=== PATIENT | male | born 1960 | race Caucasian/White ===

== ENCOUNTER 2020-02-01 10:32 | Outpatient (REF) | payer OTHER, SELFPAY ==
[2020-02-01 11:25] LABS: Alanine Aminotransferase 39 U/L (0-40); Albumin Level 4.4 g/dL (3.5-5.0); Alkaline Phosphatase 80 U/L (39-117); Anion Gap 14 (12-20); Aspartate Amino Transferase 22 U/L (5-37); Bilirubin Total 0.7 mg/dL (0.0-1.0); Blood Urea Nitrogen 15 mg/dL (9-16); Calcium 10.1 mg/dL (8.4-10.2); Carbon Dioxide 34 mmol/L (22-29); Chloride 97 mmol/L (96-108); Estimated Glomerular Filt Rate > 60; Glucose Random 193 mg/dL (60-115); Potassium 4.5 mmol/l (3.3-5.1); Sodium 140 mmol/L (135-145); Total Protein 7.3 g/dL (6.5-8.0)
== END 2020-02-01 10:33 | disposition home or self-care (01) ==
LOC: HO.LAB 10:32
PROVIDERS: PCP Family Medicine; Visit Provider Family Medicine
DX: I10 Essential (primary) hypertension (principal)
CPT/HCPCS: 80053; 82043

== ENCOUNTER 2020-06-24 08:05 | Outpatient (REF) | payer OTHER, SELFPAY ==
--- NOTE | 2020-06-24 08:29 | MHC.AU.P13 ---
Hearing Instrument Problem Date of Visit: 06/24/20 Right Ear: Crap Shooter: Phonak Model: AUDEO B50 DIRECT Serial Number: [id number] Repair Warranty: 10/28/2020 Loss and Damage Warranty: 10/28/2020 Battery Size: 13 Color: SILVER ARELLANO Medical Support Specialist: 3xUP Type of Mold: CSHELL [id number] Type of Wax Guard: CERUSTOP Left Ear: Crap Shooter: Phonak Model: AUDEO B50 DIRECT Serial Number: [id number] Repair Warranty: 10/28/2020 Loss and Damage Warranty: 10/28/2020 Battery Size: 13 Color: SILVER ARELLANO Medical Support Specialist: 3xUP Type of Mold: CSHELL [id number] Type of Wax Guard: CERUSTOP Follow-Up Summary: Patient brought in aids - right prisoner classification interviewer wire broken/left fades. Will send right for repair first, left cleaned and given back to patient. Call when right in and patient may then send left for repair. Recommendations: Recommendations: Patient will be contacted when materials have arrived. Signature: Provider: WARREN Castellanos-
== END 2020-06-24 08:06 | disposition home or self-care (01) ==
LOC: HO.HAP 08:05
PROVIDERS: Visit Provider Family Medicine
DX: Z13.89 Encounter for screening for other disorder (principal)

== ENCOUNTER 2020-06-24 13:50 | Outpatient (REF) | payer OTHER, SELFPAY ==
--- NOTE | 2020-06-24 14:20 | MHC.AU.P13 ---
Hearing Instrument Problem Date of Visit: 06/24/20 Right Ear: Americanization Teacher: Phonak Model: AUDEO B50 DIRECT Serial Number: [id number] Repair Warranty: 10/28/2020 Loss and Damage Warranty: 10/28/2020 Battery Size: 13 Color: SILVER ARELLANO Salvage Mechanic: 3xUP Type of Mold: CSHELL [id number] Type of Wax Guard: CERUSTOP Left Ear: Americanization Teacher: Phonak Model: AUDEO B50 DIRECT Serial Number: [id number] Repair Warranty: 10/28/2020 Loss and Damage Warranty: 10/28/2020 Battery Size: 13 Color: SILVER ARELLANO Salvage Mechanic: 3xUP Type of Mold: CSHELL [id number] Type of Wax Guard: CERUSTOP Follow-Up Summary: Patient came back in later in day to bring left as it is still intermittent. Sent to [employer]. Call patient when both aids are back from repair as right was sent out earlier today. Recommendations: Recommendations: Patient will be contacted when materials have arrived. Signature: Provider: BOSTON Castellanos
== END 2020-06-24 13:51 | disposition home or self-care (01) ==
LOC: HO.HAP 13:50
PROVIDERS: Visit Provider Family Medicine
DX: Z13.89 Encounter for screening for other disorder (principal)

== ENCOUNTER 2020-07-10 16:09 | Outpatient (REF) | payer SELFPAY | END 2020-07-10 16:10 | disposition home or self-care (01) | LOC: HO.HAP 16:09 | PROVIDERS: Visit Provider Hospitalist | DX: Z13.89 Encounter for screening for other disorder (principal) ==

== ENCOUNTER → 2020-07-15 13:01 | Outpatient (BNVA) | payer OTHER, SELFPAY | PROVIDERS: PCP Family Medicine; Referring Provider Family Medicine; Visit Provider Internal Medicine ==

== ENCOUNTER → 2020-07-24 13:03 | Outpatient (REF) | payer OTHER, SELFPAY ==
--- NOTE | 2020-07-24 13:05 | CA_ITS ---
Transthoracic Echocardiogram Patient (Last, First, Middle): Melecio Christina Charles Gender: Male Date of : 1960 Age: 59 Procedure Date: 07/24/2020 Procedure Type: Transthoracic Echocardiogram Location: OP Height: 172.72 cm Weight: 90.72 kg BSA: 2.04 m2 Heart Rate: bpm BP: 149 / 70 mmHg Tree Loader Meat: MARK Referring MD: Tj Pierce MD Symptoms: I25.10 - Atherosclerotic heart disease of [place] coronary... Study Quality: Technically Difficult ECG Rhythm: Sinus Conclusions: - The left ventricular systolic function is normal. The visually estimated ejection fraction is between 60-65%. - There is mild to moderately decreased right ventricular systolic function. - No obvious valvular pathology seen on this study. Findings Left Ventricle Normal left ventricular cavity size. There is normal left ventricular wall thickness. The left ventricular systolic function is normal. The visually estimated ejection fraction is between 60-65%. E/E prime ratio is between 8 and 15 consistent with indeterminate filling pressures. Evidence suggests grade I (mild) diastolic dysfunction. Right Ventricle Normal right ventricular cavity size. There is mild to moderately decreased right ventricular systolic function. TAPSE 1.36cm. Atria Both atria are normal in size. There is lipomatous hypertrophy of the interatrial septum. Aortic Valve There is a normal trileaflet aortic valve. There is no aortic valve stenosis. There is no aortic valve regurgitation. Mitral Valve The mitral valve appears normal. There is no mitral valve stenosis. Pulmonic Valve The pulmonic valve was not well visualized. There is no pulmonic valve regurgitation. Tricuspid Valve Normal tricuspid valve structure. There is trace tricuspid valve regurgitation. Tricuspid regurgitation envelope is inadequate for calculation of right ventricular systolic pressure. Great Vessels The aortic annulus, sinuses of valsalva, and asc aorta are normal in size. Venous The inferior vena cava is normal in size and collapses less than 50% with inspiration. Pericardium/Pleural There is no evidence of pericardial effusion. Prior Study Comparison No significant change compared to prior study dated: 05/25/2015. Recommendations, Care & Conclusions No obvious valvular pathology seen on this study. Measurements M-Mode Liner Measurements Normals - Women/Men AOV Cusps: 2.00 1.5-2.6 cm/m2 2D Linear Measurements IVSd: 0.76 0.6-0.9/0.6-1.0 cm LVIDd: 4.73 3.9-5.3/4.2-5.9 cm LVIDd Index: 2.32 2.4-3.2/2.2-3.1 cm/m2 LVIDs: 2.93 2.0-3.6 cm LVPWd: 0.77 0.7-1.1 cm Ao Root: 3.00 2.1-3.5 cm LA Diam: 3.10 2.7-3.8/3.0-4.0 cm LAIDs Index: 1.52 1.5-2.3 cm/m2 LV Mass: 145.31 67-162/88-224 g LV Mass Index: 71.23 43-95/49-115 g/m2 LVOT Diam: 2.10 3.0+(-)1.3 cm 2D Systolic Function EF 4C: 54.80 >55% EF 2C: 47.10 >55% Mitral Valve MV Pk E: 0.84 MV PK A: 0.75 MV Decel Time: 245.00 E/A: 1.10 E'Lateral: 6.74 E'Medial: 5.55 E/E' Med: 15.10 E/E' Lat: 12.40 PHT: 72.00 MVA PHT: 3.06 Decel Todd: 3.40 Aortic Valve AoV Pk Hiren: 1.29 AoV Mn Hiren: 0.98 AoV VTI: 0.28 AoV Pk Grad: 7.00 Aov Mn Grad: 4.00 OBO Cont.VTI: 1.90 LVOT LVOT Pk Hiren: 0.76 LVOT Mn Hiren: 0.55 LVOT VTI: 0.15 LVOT Pk Grad: 2.00 LVOT Mn Grad: 1.00 LVOT Diam: 2.10 LVOT Area: 3.46 Diastolic Function MV Pk E: 0.84 MV Pk A: 0.75 E/A: 1.10 E'Medial: 5.55 E/E' Med: 15.10 E' Laterial: 6.74 E/E' Lat: 12.40 Tricuspid Valve RA Press: 8.00 Great Vessels Aorta Ao Root-2D: 3.00 2.0-3.7 cm Ao Asc: 2.90 2.1-3.4 cm Ao Arch: 2.70 Pulmonary Valve PV Pk Hiren: 1.51 Peak PV Grad: 9.00 Updated in Other Vendor System with Status of Final Tj Pierce MD electronically signed on 07/25/2020 12:48:58 PM with status of Final
== END ==
LOC: HO.CARD 13:03
PROVIDERS: PCP Family Medicine; Visit Provider Internal Medicine
DX: I25.10 Atherosclerotic heart disease of native coronary artery without angina pectoris (principal); Z95.1 Presence of aortocoronary bypass graft
CPT/HCPCS: 93306

== ENCOUNTER → 2020-08-05 08:47 | Outpatient (REF) | payer OTHER, SELFPAY ==
--- NOTE | ~2020-08-05 | NM_ITS ---
Exercise Myocardial perfusion study Indication: Atherosclerotic cardiovascular disease Technique: The patient was brought in for an exercise perfusion study on 08/05/2020. Patient performed exercise as per James protocol and was injected 30 mCi of sestamibi was given intravenously one target HR was achieved. Images were obtained using the SPECT gamma camera interlaced with the gating device. Images were obtained in supine position. Resting perfusion study was performed on 08/06/2020. Patient was administered 30 mCi of sestamibi intravenously at rest. Images were then obtained in supine position. Images obtained with and without CT attenuation. Total DLP 99 mGy-cm. Images were processed with the software and compared side to side in short axis, horizontal long axis and vertical long axis views. Findings: The stress perfusion study showed both attenuated as well as nonattenuated images show normal uptake of radiotracer in all segments of LV myocardium.. The gated study shows normal LV systolic function with calculated LVEF of 70%. LV cavity is normal in size. The gated study shows normal systolic wall thickening and contraction of all segments. There is no transient ischemic dilation. Resting study shows nonattenuated images show normal uptake of radiotracer in all segments of LV myocardium. Gating at rest reveals normal systolic wall motion with ejection fraction at 69%. The findings are consistent with normal myocardial perfusion. NM/NM soco perf SPECT rest & str Impression: 1. Normal myocardial perfusion 2. Gated LVEF is 70% 3. Transient ischemic dilatation not present Stress EKG is negative for ischemia
--- NOTE | 2020-08-05 08:30 | CA_ITS ---
Acquisition Time: 2020-08-05 09:03:39 Total Exercise Time: 00:06:30 Test Indications: Screening for CAD Medications: ASA ATORVASTATIN GLIPIZIDE HCTZ LEVOTHYROXINE METFORMIN SRTRALINE TAMSULOSIN Protocol: TAINA Max HR: 144 BPM 90% of Pred: 159 BPM Max BP: 182/068 mmHG Max Work Load: 7.7 METS Exercise stress test with exercise 6 min 30 sec of Taina protocol, without anginal symptoms, with frequent PACS mostly at rest and in recovery, without normotensive response to exercise, without EKG changes meeting criteria for ischemia. Nuclear images pending. Test reviewed with Dr Aceves. Referred By: Tj Pierce Overread By: MYA ROCHA
== END ==
LOC: HO.CARD 08:47
PROVIDERS: Visit Provider Internal Medicine
DX: I25.10 Atherosclerotic heart disease of native coronary artery without angina pectoris (principal); Z95.1 Presence of aortocoronary bypass graft
CPT/HCPCS: 78452; 93017; A9500

== ENCOUNTER 2020-10-01 14:45 | Outpatient (REF) | payer SELFPAY | END 2020-10-01 14:46 | disposition home or self-care (01) | LOC: HO.HAP 14:45 | PROVIDERS: Visit Provider Family Medicine | DX: Z46.1 Encounter for fitting and adjustment of hearing aid (principal); H90.3 Sensorineural hearing loss, bilateral | CPT/HCPCS: V5267 ==

== ENCOUNTER 2020-11-16 13:57 | Outpatient (REF) | payer SELFPAY ==
--- NOTE | 2020-11-16 14:15 | MHC.AU.P13 ---
Hearing Instrument Problem Date of Visit: 11/16/20 Right Ear: Steam Engineer: Phonak Model: AUDEO B50 DIRECT Serial Number: [id number] Repair Warranty: 10/28/2020 Loss and Damage Warranty: 10/28/2020 Battery Size: 13 Color: SILVER ARELLANO Sql Server Developer: 3xUP Type of Mold: CSHELL [id number] Type of Wax Guard: CERUSTOP Dispensed By: [facility] Date of Fittin09/05/2017 Left Ear: Steam Engineer: Phonak Model: AUDEO B50 DIRECT Serial Number: [id number] Repair Warranty: 10/28/2020 Loss and Damage Warranty: 10/28/2020 Battery Size: 13 Color: SILVER ARELLANO Sql Server Developer: 3xUP Type of Mold: CSHELL [id number] Type of Wax Guard: CERUSTOP Dispensed By: [facility] Date of Fittin09/05/2017 Follow-Up Summary: Hearing aids brought in for cleaning/feels left not working as well. Both aids cleaned and wax guards replaced - both amplifying clearly. Patient has not had audio since 2018. He will schedule re-eval and adjustment. Diagnosis Code(s): Primary Diagnosis: H90.3 Bilateral Sensorineural Hearing Loss Signature: Provider: WARREN Castellanos-HIS
== END 2020-11-16 13:58 | disposition home or self-care (01) ==
LOC: HO.HAP 13:57
PROVIDERS: Visit Provider Family Medicine
DX: Z13.89 Encounter for screening for other disorder (principal)

== ENCOUNTER 2020-11-25 14:36 | Outpatient (REF) | payer SELFPAY ==
--- NOTE | 2020-11-25 15:19 | MHC.AU.HFU ---
Hearing Instrument Follow-Up- Binaural Date of Visit: 11/25/20 Right Ear: Armature Winder Repairer: Phonak AUDEO B50 DIRECT Serial Number: [id number] Repair Warranty: 10/28/2020 Battery Size: 13 Color: SILVER ARELLANO Gunstock Repairer: 3xUP Type of Mold: CSHELL [id number] Type of Wax Guard: CERUSTOP Dispensed By: [facility] Date of Fittin09/05/2017 Left Ear: Armature Winder Repairer: Phonak AUDEO B50 DIRECT Serial Number: [id number] Repair Warranty: 10/28/2020 Battery Size: 13 Color: SILVER ARELLANO Gunstock Repairer: 3xUP Type of Mold: CSHELL [id number] Type of Wax Guard: CERUSTOP Dispensed By: [facility] Date of Fittin09/05/2017 Follow-Up Summary: HAP - Left aid soft in volume , not clear, and getting crackling. Otoscopy shows clear canal. Visual inspection of the left aid shows debris in microphones. Cleaned microphones with patient noting improved sound quality while in office. Patient will have PCP fax order for hearing test. Patient is interested in purchasing new aids with bluetooth built-in, but will need to set up payment plan. Advised patient to try [facility] even if he thinks he will not be eligible. IF LEFT AID PROBLEM CONTINUES, CONTACT JJ TO SEE IF COURTESY REPAIR CAN BE DONE. Recommendations: Recommendations: Hearing instrument follow-up or maintenance as needed. Patient will call if problems persist. Diagnosis Code(s):Primary Diagnosis: H90.3 Bilateral Sensorineural Hearing Loss Signature: Provider: Reji Hodge, MIGUEL ANGEL-A
== END 2020-11-25 14:37 | disposition home or self-care (01) ==
LOC: HO.HAP 14:36
PROVIDERS: Visit Provider Family Medicine
DX: Z13.89 Encounter for screening for other disorder (principal)

== ENCOUNTER 2020-12-12 10:28 | Outpatient (REF) | payer OTHER, SELFPAY ==
[2020-12-12 11:23] LABS: Estimated Average Glucose 148 mg/dL; Hemoglobin A1c % 6.8 %
[2020-12-12 11:48] LABS: Alanine Aminotransferase 47 U/L (0-40); Albumin Level 4.3 g/dL (3.5-5.0); Alkaline Phosphatase 75 U/L (39-117); Anion Gap 10 (12-20); Aspartate Amino Transferase 26 U/L (5-37); Bilirubin Total 0.8 mg/dL (0.0-1.0); Blood Urea Nitrogen 15 mg/dL (9-16); Carbon Dioxide 33 mmol/L (22-29); Chloride 102 mmol/L (96-108); Estimated Glomerular Filt Rate > 60; Glucose Fasting 134 mg/dL (60-99); Potassium 4.3 mmol/L (3.3-5.1); Sodium 141 mmol/L (135-145); Total Protein 6.8 g/dL (6.5-8.0)
== END 2020-12-12 10:29 | disposition home or self-care (01) ==
LOC: HO.LAB 10:28
PROVIDERS: PCP Family Medicine; Visit Provider Family Medicine
DX: Z00.00 Encounter for general adult medical examination without abnormal findings (principal); R73.01 Impaired fasting glucose
CPT/HCPCS: 36415; 80053; 83036

== ENCOUNTER 2021-03-02 08:31 | Outpatient (REF) | payer OTHER, SELFPAY ==
[2021-03-02 11:12] LABS: Binax Internal Control QC Valid; Binax Lot number: 9864; Binax Now Covid-19 Ag Negative (Negative)
== END 2021-03-02 08:32 | disposition home or self-care (01) ==
LOC: HO.LAB 08:31
PROVIDERS: Visit Provider Internal Medicine
DX: Z20.822 Contact with and (suspected) exposure to COVID-19 (principal)
CPT/HCPCS: 36415; C9803

== ENCOUNTER 2021-03-13 09:36 | Outpatient (REF) | payer OTHER, SELFPAY ==
[2021-03-13 09:52] LABS: MANUAL DIFF FLAG NO
[2021-03-13 10:21] LABS: Basophils Absolute Auto 0.1 X10*3/uL (0.0-0.2); Basophils Percent Auto 0.8 % (0-2); Eosinophils Absolute Auto 0.3 X10*3/uL (0.0-0.4); Eosinophils Percent Auto 2.5 % (0-4); Hematocrit 44.3 % (42.0-52.0); Hemoglobin 15.6 g/dl (14.0-18.0); Imm Gran Abs Auto 0.03 X10*3/uL (0.00-0.03); Imm Gran Pct Auto 0.3 % (0.0-0.4); Lymphocytes Absolute Auto 3.3 X10*3/uL (1.2-4.9); Lymphocytes Percent Auto 32.9 % (20-40); Mean Corpuscular HGB Conc 35.2 g/dl (31.0-36.0); Mean Corpuscular Hemoglobin 32.2 pg (27.0-33.0); Mean Corpuscular Volume 91.5 fL (80.0-98.0); Mean Platelet Volume 10.1 fL (9.4-12.4); Monocytes Absolute Auto 0.9 X10*3/uL (0.1-1.2); Monocytes Percent Auto 9.1 % (2-11); Neutrophils Absolute Auto 5.5 x10*3/uL (2.0-8.3); Neutrophils Percent Auto 54.4 % (45-73); Platelet Count 301 X10*3/uL (160-400); Red Blood Count 4.84 X10*6/uL (4.60-5.80); Red Cell Distribution Width 11.5 % (11.0-16.0); White Blood Count 10.1 X10*3/uL (4.8-10.8)
[2021-03-13 10:27] LABS: Alanine Aminotransferase 71 U/L (0-40); Albumin Level 4.2 g/dL (3.5-5.0); Alkaline Phosphatase 81 U/L (39-117); Anion Gap 11 (12-20); Aspartate Amino Transferase 32 U/L (5-37); Bilirubin Total 0.6 mg/dL (0.0-1.0); Blood Urea Nitrogen 20 mg/dL (9-16); Calcium 10.2 mg/dL (8.4-10.2); Carbon Dioxide 34 mmol/L (22-29); Chloride 99 mmol/L (96-108); Cholesterol 161 mg/dL; Estimated Glomerular Filt Rate > 60; Glucose Fasting 173 mg/dL (60-99); HDL Cholesterol 37 mg/dL; LDL Cholesterol Calculated 107 mg/dl; Potassium 3.9 mmol/L (3.3-5.1); Sodium 140 mmol/L (135-145); Total Protein 6.9 g/dL (6.5-8.0); Triglycerides 89 mg/dL
[2021-03-13 10:35] LABS: Estimated Average Glucose 163 mg/dL; Hemoglobin A1c % 7.3 %
== END 2021-03-13 09:37 | disposition home or self-care (01) ==
LOC: HO.LAB 09:36
PROVIDERS: PCP Family Medicine; Visit Provider Family Medicine
DX: Z00.00 Encounter for general adult medical examination without abnormal findings (principal); Z12.5 Encounter for screening for malignant neoplasm of prostate; R73.01 Impaired fasting glucose
CPT/HCPCS: 36415; 80053; 80061; 83036; 84153; 84443; 85025

== ENCOUNTER 2021-04-05 16:47 | Outpatient (REF) | payer SELFPAY | END 2021-04-05 16:48 | disposition home or self-care (01) | LOC: HO.HAP 16:47 | PROVIDERS: Visit Provider Family Medicine | DX: Z46.1 Encounter for fitting and adjustment of hearing aid (principal) | CPT/HCPCS: V5267 ==

== ENCOUNTER 2021-07-24 10:05 | Outpatient (REF) | payer OTHER, SELFPAY ==
[2021-07-24 11:38] LABS: Alanine Aminotransferase 43 U/L (0-40); Albumin Level 4.1 g/dL (3.5-5.0); Alkaline Phosphatase 80 U/L (39-117); Anion Gap 12 (12-20); Aspartate Amino Transferase 23 U/L (5-37); Bilirubin Total 0.6 mg/dL (0.0-1.0); Blood Urea Nitrogen 14 mg/dL (9-16); Calcium 9.8 mg/dL (8.4-10.2); Carbon Dioxide 30 mmol/L (22-29); Chloride 104 mmol/L (96-108); Cholesterol 157 mg/dL; Estimated Glomerular Filt Rate > 60; Glucose Fasting 178 mg/dL (60-99); HDL Cholesterol 47 mg/dL; LDL Cholesterol Calculated 91 mg/dl; Sodium 142 mmol/L (135-145); Total Protein 6.8 g/dL (6.5-8.0); Triglycerides 95 mg/dL
== END 2021-07-24 10:06 | disposition home or self-care (01) ==
LOC: HO.LAB 10:05
PROVIDERS: PCP Family Medicine; Visit Provider Family Medicine
DX: Z00.00 Encounter for general adult medical examination without abnormal findings (principal)
CPT/HCPCS: 36415; 80053; 80061

== ENCOUNTER 2021-08-31 13:33 | Outpatient (REF) | payer SELFPAY | END 2021-08-31 13:34 | disposition home or self-care (01) | LOC: HO.HAP 13:33 | PROVIDERS: Visit Provider Family Medicine | DX: Z13.89 Encounter for screening for other disorder (principal) ==

== ENCOUNTER 2021-12-18 10:09 | Outpatient (REF) | payer OTHER, SELFPAY ==
[2021-12-18 10:28] LABS: MANUAL DIFF FLAG NO
[2021-12-18 11:26] LABS: Basophils Absolute Auto 0.1 X10*3/uL (0.0-0.2); Basophils Percent Auto 1.1 % (0-2); Eosinophils Absolute Auto 0.2 X10*3/uL (0.0-0.4); Eosinophils Percent Auto 2.1 % (0-4); Hematocrit 45.5 % (42.0-52.0); Hemoglobin 15.8 g/dl (14.0-18.0); Imm Gran Abs Auto 0.04 X10*3/uL (0.00-0.03); Imm Gran Pct Auto 0.4 % (0.0-0.4); Lymphocytes Absolute Auto 2.2 X10*3/uL (1.2-4.9); Lymphocytes Percent Auto 23.6 % (20-40); Mean Corpuscular HGB Conc 34.7 g/dl (31.0-36.0); Mean Corpuscular Hemoglobin 32.2 pg (27.0-33.0); Mean Corpuscular Volume 92.9 fL (80.0-98.0); Mean Platelet Volume 10.7 fL (9.4-12.4); Monocytes Absolute Auto 1.1 X10*3/uL (0.1-1.2); Monocytes Percent Auto 11.5 % (2-11); Neutrophils Absolute Auto 5.7 x10*3/uL (2.0-8.3); Neutrophils Percent Auto 61.3 % (45-73); Platelet Count 282 X10*3/uL (160-400); Red Cell Distribution Width 11.8 % (11.0-16.0); White Blood Count 9.3 X10*3/uL (4.8-10.8)
[2021-12-18 12:47] LABS: Alanine Aminotransferase 54 U/L (0-40); Albumin Level 4.2 g/dL (3.5-5.0); Alkaline Phosphatase 89 U/L (39-117); Anion Gap 15 (12-20); Aspartate Amino Transferase 30 U/L (5-37); Bilirubin Total 0.7 mg/dL (0.0-1.0); Blood Urea Nitrogen 18 mg/dL (9-16); Calcium 9.7 mg/dL (8.4-10.2); Carbon Dioxide 28 mmol/L (22-29); Chloride 99 mmol/L (96-108); Cholesterol 147 mg/dL; Estimated Glomerular Filt Rate > 60; Glucose Fasting 149 mg/dL (60-99); HDL Cholesterol 43 mg/dL; LDL Cholesterol Calculated 82 mg/dl; Potassium 4.2 mmol/L (3.3-5.1); Sodium 138 mmol/L (135-145); Total Protein 6.8 g/dL (6.5-8.0); Triglycerides 113 mg/dL
[2021-12-18 12:52] LABS: TSH reflex Free T4 3.04 uIU/mL (0.32-4.0)
[2021-12-26 14:07] LABS: Testosterone, Free 50.9 pg/mL (35.0-155.0); Testosterone, Total 366 ng/dL (250-1100)
== END 2021-12-18 10:10 | disposition home or self-care (01) ==
LOC: HO.LAB 10:09
PROVIDERS: PCP Family Medicine; Visit Provider Family Medicine
DX: Z00.00 Encounter for general adult medical examination without abnormal findings (principal); R74.01 Elevation of levels of liver transaminase levels; E78.5 Hyperlipidemia, unspecified; R53.83 Other fatigue
CPT/HCPCS: 36415; 80053; 80061; 84402; 84403; 84443; 85025

== ENCOUNTER 2022-01-11 16:01 | Outpatient (REF) | payer OTHER, SELFPAY ==
[2022-01-12 13:10] LABS: Influenza A PCR NEGATIVE (Negative); Influenza B PCR NEGATIVE (Negative); Resp Syncy Virus RNA Qual PCR NEGATIVE (Negative); SARS COV2 PCR INHOUSE NEGATIVE (Negative)
== END 2022-01-11 16:02 | disposition home or self-care (01) ==
LOC: HO.LNP 16:01
PROVIDERS: Visit Provider Nurse Practitioner Family
DX: J06.9 Acute upper respiratory infection, unspecified (principal); Z20.822 Contact with and (suspected) exposure to COVID-19
CPT/HCPCS: 0241U

== ENCOUNTER 2022-04-04 14:45 | Outpatient (REF) | payer SELFPAY | END 2022-04-04 14:46 | disposition home or self-care (01) | LOC: HO.HAP 14:45 | PROVIDERS: Visit Provider Family Medicine | DX: Z46.1 Encounter for fitting and adjustment of hearing aid (principal); H90.3 Sensorineural hearing loss, bilateral | CPT/HCPCS: 92700 ==

== ENCOUNTER 2022-05-07 13:34 | Outpatient (REF) | payer OTHER, SELFPAY ==
[2022-05-07 14:26] LABS: Influenza A PCR NEGATIVE (Negative); Influenza B PCR NEGATIVE (Negative); Resp Syncy Virus RNA Qual PCR NEGATIVE (Negative); SARS COV2 PCR INHOUSE NEGATIVE (Negative)
== END 2022-05-07 13:35 | disposition home or self-care (01) ==
LOC: HO.HMGCLNP 13:34
PROVIDERS: Visit Provider Physician Assistant Medical
DX: Z20.822 Contact with and (suspected) exposure to COVID-19 (principal); R05.9 Cough, unspecified
CPT/HCPCS: 0241U

== ENCOUNTER 2022-06-06 12:31 | Outpatient (REF) | payer OTHER, SELFPAY ==
--- NOTE | ~2022-06-06 | XR_ITS ---
EXAMINATION: XR CHEST CLINICAL INFORMATION: Cough. COMPARISON: 10/17/2017 TECHNIQUE: 2 views of the chest were obtained. FINDINGS: There has been no interval change when compared to the 10/17/2017 study. Again noted is some left basilar atelectasis and mild indistinctness to the left heart border. No consolidations, pleural effusions or lung masses are seen. Patient is status post median sternotomy. Mild degenerative changes are present in the spine. XR/XR chest 2V IMPRESSION: No acute intrathoracic disease.
== END 2022-06-06 12:32 | disposition home or self-care (01) ==
LOC: HO.XRAY 12:31
PROVIDERS: PCP Family Medicine; Visit Provider Family Medicine
DX: R05.9 Cough, unspecified (principal)
CPT/HCPCS: 71046

== ENCOUNTER 2022-09-16 16:14 | Outpatient (AMB) | payer OTHER, SELFPAY ==
--- NOTE | 2022-09-16 16:15 | MHC.PC.OV ---
Vital Signs 09/16/22 16:20 Height 5 ft 8 in Weight 208 lb BMI 31.6 BP 126/78 Blood Pressure Location Lt brachial Position Sitting Intake Visit Reasons: f/u hypertension Intake Note: Patient is following up on hypertension. Allergies No Known Allergies Allergy (Verified 09/16/22 16:19) Medication List - Last Reconciled 09/16/22 by Saul Horton MD amlodipine 5 mg PO DAILY 90 days aspirin 81 mg PO DAILY atorvastatin 80 mg PO DAILY 90 days benzonatate 100 mg PO BID-TID benzonatate 200 mg PO TID PRN blood pressure monitor Automatic, Digital. Dx: I10. Daily As directed, 999 days/lifetime blood sugar diagnostic (FreeStyle Lite Strips) As directed check bloodsugar once daily blood-glucose meter (FreeStyle Marks Lite kit) As directed bupropion HCl 75 mg PO BID 90 days fluticasone propionate 50 mcg/actuation (Flonase Allergy Relief) 1 spray intranasal Q12H 30 days glipizide ER 5 mg PO DAILY 30 days hydrochlorothiazide 25 mg PO DAILY lancets (FreeStyle Lancets) USE 1 TO CHECK GLUCOSE ONCE DAILY levothyroxine 50 mcg PO DAILY metformin 500 mg PO BID 90 days ropinirole 1 mg PO BID 90 days sildenafil 50 mg PO DAILY PRN 30 days sitagliptin phosphate 100 mg PO DAILY 90 days sodium chloride 3% (Saline Nasal Mist) 1 spray intranasal Q4-6H PRN 30 days tamsulosin 0.4 mg PO DAILY 90 days trazodone 100 mg PO BEDTIME 30 days Tobacco use date assessed: 09/16/22 Dental Screening Dental Screen Date: 09/16/22 Did you have a dental visit in the last 12 months?: No Did you have a dental problem in the last 6 months where you did not have access to dental care?: No Was dental information given to patient?: No HPI f/u hypertension HPI Details 61 y/o male presents to f/u hypertension. Blood pressure today is 126/78. He is on hydrochlorothiazide 25 mg, amlodipine 5mg daily. Pt had a chronic cough so had stopped the lisinopril. Pt states cough has improved. Last A1c 6.5%. A1c today 09/16/22 is 6.4%. He is on metformin 500mg b.i.d. and glipizide 5mg daily. Also on sitagliptin 100mg. He states he has not had a diabetic eye exam. Pt reports ED. 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 Melecio Leiva, Ingrid Rivera, Abelino Sosa and colleagues, with an educational jacqueline from [employer]. Review of Systems Const Denies chills, Denies fatigue, Denies fever(s), Denies headache(s) and Denies weakness ENT Denies dizziness and Denies headache(s) Card Denies chest pain, Denies lightheadedness, Denies dyspnea and Denies other (Palpitations) Resp Denies cough, Denies dyspnea, Denies wheezing and Denies other ( shortness of breath) Musc Denies numbness and Denies tingling Neuro Denies dizziness, Denies headache(s), Denies numbness, Denies tingling, Denies paresthesias and Denies weakness Psych Denies anxiety and Denies depression Endo Denies fatigue Aller/Immun Denies wheezing Physical exam (Primary Care) Vital Signs: Last Vital Signs BP 126/78 09/16/22 16:20 BMI result Body Mass Index 31.6 Tobacco/Smoking Status: Tobacco use Status Tobacco use date assessed 09/16/22 09/16/22 16:25 Patient Tobacco Use Status Former Tobacco user 09/16/22 16:16 e-Cigarette/Vaping Use Never Used 09/16/22 16:16 Thrive Assessment: Date of Thrive Assessment Date Thrive assessed 03/09/22 09/16/22 16:16 Const General: no acute distress and well developed Nutritional Appearance: well nourished Orientation/consciousness: patient oriented x3 HENMT Head: Yes normocephalic and Yes atraumatic Eyes General: appearance normal, both eyes and all related structures Pupils: Equal, round and reactive pupils present EOM: EOMs intact bilaterally Resp Effort & Inspection: normal respiratory effort Auscultation: clear to auscultation bilaterally Cardio Rate: regular rate Rhythm: regular rhythm Heart sounds: S1 normal heart sound present, S2 normal heart sound present, no gallops, no murmurs and no rubs Neuro General: patient oriented x3 and gait normal Cranial nerves: Yes Equal, round and reactive pupils present Extrem Other: Trace edema in his ankles Psych Affect: normal affect Results AMB Hemoglobin A1c AMB Hemoglobin A1c 6.5 % Last Edit by Mariluz Veliz CMA on 09/16/22 16:46 Assessment and Plan Assessment & Plan (1) Essential hypertension: Code(s): I10 - Essential (primary) hypertension Plan: Blood pressure remains controlled and at goal of less than 130/84 patient with coronary artery disease, since changing lisinopril to amlodipine due to chronic cough. Continue current medication regimen (2) Coronary artery disease: Code(s): I25.10 - Atherosclerotic heart disease of [place] coronary artery without angina pectoris Plan: Stable (3) Cough: Code(s): R05.9 - Cough, unspecified Plan: This has resolved with discontinuance of lisinopril which was switched to amlodipine. (4) Diabetes type 2, controlled: Code(s): E11.9 - Type 2 diabetes mellitus without complications Plan: A1c remains controlled at 6.5% and goal is less than 7.0%. Encouraged diabetic diet, exercise and weight control (5) Erectile dysfunction: Code(s): N52.9 - Male erectile dysfunction, unspecified Plan: Patient has used sildenafil in the past. Will send him a script for this. (6) Lower extremity edema: Code(s): R60.0 - Localized edema Orders: Orders AMB Hemoglobin A1c Today Z13.9 - Encounter for screening, unspecified Referrals Ophthalmology Referral E11.9 - Type 2 diabetes mellitus without complications Medications: New sildenafil administer 30 minutes to 4 hours before activity 50 mg PO DAILY PRN 10 tabs 0RF sexual activity 30 days Changed From metformin 500 mg PO BID 60 tabs 2RF 30 days To metformin 500 mg PO BID 180 tabs 3RF 90 days Refilled blood-glucose meter (FreeStyle Marks Lite kit) As directed 1 ea 0RF blood sugar diagnostic (FreeStyle Lite Strips) As directed check bloodsugar once daily 100 ea 12RF Coding Level of Care Code Est Pt Level 4 (37162) Diagnoses Essential hypertension I10 Coronary artery disease I25.10 Cough R05.9 Diabetes type 2, controlled E11.9 Erectile dysfunction N52.9 Lower extremity edema R60.0
[2022-09-16 16:20] VITALS: BP 126/78; BMI 31.6
== END 2022-09-16 16:56 | disposition home or self-care (01) ==
PROVIDERS: PCP Family Medicine; Visit Provider Family Medicine
DX: I10 Essential (primary) hypertension (principal); I25.10 Atherosclerotic heart disease of native coronary artery without angina pectoris; R05.9 Cough, unspecified; E11.9 Type 2 diabetes mellitus without complications; N52.9 Male erectile dysfunction, unspecified; R60.0 Localized edema; Z13.9 Encounter for screening, unspecified
CPT/HCPCS: 83036; 99214

== ENCOUNTER 2022-11-07 14:45 | Outpatient (AMB) | payer OTHER, SELFPAY ==
[2022-11-07 15:10] VITALS: BP 140/82; PULSE 70; BMI 31.1
--- NOTE | 2022-11-07 15:10 | MHC.OFFVIS ---
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 Dx: I10. Daily As directed, 999 days/lifetime blood sugar diagnostic (FreeStyle Lite Strips) As directed check bloodsugar once daily blood-glucose meter (FreeStyle Menno Lite kit) As directed bupropion HCl 75 mg PO BID 90 days glipizide ER 5 mg PO DAILY 30 days hydrochlorothiazide 25 mg PO DAILY lancets (FreeStyle Lancets) USE 1 TO CHECK GLUCOSE ONCE DAILY levothyroxine 50 mcg PO DAILY metformin 500 mg PO BID 90 days ropinirole 1 mg PO BID 90 days sildenafil 50 mg PO DAILY PRN 30 days tamsulosin 0.4 mg PO DAILY 90 days trazodone 100 mg PO BEDTIME 30 days HPI overdue follow up HPI Details Melecio is a 62-year-old male with past medical history of hypertension, hyperlipidemia, diabetes, remote coronary artery bypass grafting who presents for cardiology follow-up. His last prior visit to our office was 07/15/2020. Today he reports that he has been doing very well since his last visit. He denies any concerning symptoms. No chest discomfort at rest or with activity, shortness of breath, palpitations, presyncope, syncope, PND, orthopnea or edema. He reports good activity tolerance but admits to being mostly sedentary. 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 He says he takes his meds as directed. 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 Current occupational exposures/hazards: No Cognitive needs: No Hearing needs: Yes (Hearing Aide) Vision needs: Yes (Glasses) Review of Systems Const All systems reviewed & are unremarkable except as noted in HPI and below ENT Denies dizziness Card Denies chest pain, Denies chest pain at rest, Denies chest pain with activity, Denies rapid heart rate, Denies pedal edema, Denies edema, Denies leg edema, Denies lightheadedness, Denies palpitations, Denies dyspnea, Denies dyspnea on exertion and Denies orthopnea Resp Denies cough, Denies dyspnea and Denies dyspnea on exertion GI Denies hematochezia and Denies change in stool character Musc Denies abnormal gait, Denies limited range of motion, Denies muscle cramps, Denies muscle weakness, Denies numbness, Denies radiating pain into limb, Denies stiffness and Denies tingling Neuro Denies abnormal gait, Denies dizziness, Denies numbness and Denies tingling Endo Denies palpitations Physical Exam Vital Signs: Last Vital Signs Pulse 70 11/07/22 15:10 BP 140/82 H 11/07/22 15:10 BMI result Body Mass Index 31.1 Const General: cooperative, healthy appearing, comfortable and no acute distress Orientation/consciousness: patient oriented x3 Neck Neck: Yes normal visual inspection Resp Effort & Inspection: normal respiratory effort Auscultation: clear to auscultation bilaterally, no crackles, no rales, no rhonchi and no wheezes Cardio Jugular venous distension: no JVD Rate: regular rate Rhythm: regular rhythm Heart sounds: S1 normal heart sound present, S2 normal heart sound present, no murmurs and no rubs Skin General skin exam: no rashes or lesions noted Neuro General: patient oriented x3 Extrem General: Yes normal to inspection, No no pedal edema and No calf tenderness Psych Appearance: grossly normal Mental Status: mental status grossly normal Speech and movement: Normal speech and movement present Office Procedures EKG Details: Today, read by me, sinus rhythm with right bundle branch block, can not exclude prior inferior infarct, rate 70, QTC 451 millisecond [id number], Complete Assessment & Plan Assessment & Plan (1) Atherosclerotic cardiovascular disease: Code(s): I25.10 - Atherosclerotic heart disease of [place] coronary artery without angina pectoris Plan: History of coronary artery disease with coronary artery bypass grafting at age 40. Cardiac risks of hypertension, hyperlipidemia, diabetes. He denies any anginal-type symptoms. EKG done today showing normal sinus rhythm with right bundle branch block, rate 70, unchanged from prior EKG. Echocardiogram done 07/24/2020 showed EF 60-65%, mild to moderate decrease in the RV systolic function, normal RV size. A nuclear stress test was done 08/25/2020 showing exercise 6-1/2 minutes without anginal symptoms and no EKG changes, normal myocardial perfusion imaging. He continues on aspirin indefinitely, high-dose atorvastatin, amlodipine and hydrochlorothiazide. He is due for updated labs, BMP and lipids, which can be ordered by his PCP at follow-up visit in November. Patient needs ongoing cardiac risk factor modification including good blood pressure control with goal less than 130/85. Blood pressure mildly initially elevated at this visit. Prior blood pressures reviewed showing good control. It will be reached checked at his PCP visit next month. If he remains mildly elevated his amlodipine dose could be increased. He needs good blood sugar control with hemoglobin A1c goal less than 7, as well as good cholesterol with ideal LDL goal less than 70. Will order an exercise stress test as requested for DOT exam. Recommended cardiology follow-up in 1 year however patient is requesting a 2 year follow-up. He will notify our office if he has any concerning symptoms or changes in the meantime. Emergency care if ever needed for symptoms. (2) History of coronary artery bypass graft: Comment: 2002 Code(s): Z95.1 - Presence of aortocoronary bypass graft (3) Essential hypertension: Code(s): I10 - Essential (primary) hypertension (4) Diabetes type 2, controlled: Code(s): E11.9 - Type 2 diabetes mellitus without complications Qualifiers: Diabetes mellitus complication status: without complication Diabetes mellitus intermediate accountant insulin use: without intermediate accountant use Qualified Code(s): E11.9 - Type 2 diabetes mellitus without complications (5) Hyperlipidemia: Code(s): E78.5 - Hyperlipidemia, unspecified Qualifiers: Hyperlipidemia type: unspecified Qualified Code(s): E78.5 - Hyperlipidemia, unspecified (6) Right bundle branch block: Code(s): I45.10 - Unspecified right bundle-branch block Orders: Orders CA stress test Today I25.10 - Atherosclerotic heart disease of [place] coronary artery without angina pectoris, I45.10 - Unspecified right bundle-branch block, Z95.1 - Presence of aortocoronary bypass graft Coding Level of Care Code Est Pt Level 4 (58200) Diagnoses Atherosclerotic cardiovascular disease I25.10 History of coronary artery bypass graft Z95.1 Essential hypertension I10 Controlled type 2 diabetes mellitus without complication, without long-term current use of insulin E11.9 Diabetes mellitus complication status: without complication Diabetes mellitus mcfp insulin use: without mcfp use Hyperlipidemia, unspecified hyperlipidemia type E78.5 Hyperlipidemia type: unspecified Right bundle branch block I45.10 CPT Codes EKG - CPT: 99700-Uprrypocwbqdzsmde, Complete ([id number]) Time Spent (min) 28
== END 2022-11-07 15:53 | disposition home or self-care (01) ==
PROVIDERS: PCP Family Medicine; Visit Provider Nurse Practitioner Family
DX: I25.10 Atherosclerotic heart disease of native coronary artery without angina pectoris (principal); Z95.1 Presence of aortocoronary bypass graft; I10 Essential (primary) hypertension; E11.9 Type 2 diabetes mellitus without complications; E78.5 Hyperlipidemia, unspecified; I45.10 Unspecified right bundle-branch block
CPT/HCPCS: 93010; 99214

== ENCOUNTER → 2022-11-07 14:45 | Outpatient (BNVA) | payer OTHER, SELFPAY | PROVIDERS: PCP Family Medicine; Visit Provider Nurse Practitioner Family | DX: I25.10 Atherosclerotic heart disease of native coronary artery without angina pectoris (principal); I10 Essential (primary) hypertension; I45.10 Unspecified right bundle-branch block; E78.5 Hyperlipidemia, unspecified; E11.9 Type 2 diabetes mellitus without complications; Z79.82 Long term (current) use of aspirin; Z79.899 Other long term (current) drug therapy; Z95.1 Presence of aortocoronary bypass graft | CPT/HCPCS: 93005 ==

== ENCOUNTER → 2022-12-02 08:01 | Outpatient (REF) | payer OTHER, SELFPAY | LOC: HO.CARD 08:01 | PROVIDERS: PCP Family Medicine; Visit Provider Nurse Practitioner Family | DX: I25.10 Atherosclerotic heart disease of native coronary artery without angina pectoris (principal); I45.10 Unspecified right bundle-branch block; Z95.1 Presence of aortocoronary bypass graft | CPT/HCPCS: 93017 ==

== ENCOUNTER → 2022-12-02 08:05 | Outpatient (BNV) | payer OTHER, SELFPAY | PROVIDERS: PCP Family Medicine; Visit Provider Nurse Practitioner | DX: R06.02 Shortness of breath (principal); R94.31 Abnormal electrocardiogram [ECG] [EKG] | CPT/HCPCS: 93016; 93018 ==

== ENCOUNTER 2022-12-09 15:47 | Outpatient (AMB) | payer OTHER, SELFPAY ==
[2022-12-09 15:51] VITALS: BP 130/82; PULSE 88; O2SAT 95; BMI 31.4
--- NOTE | 2022-12-09 15:51 | A.OFFPC_ITS ---
Vital Signs 12/09/22 15:51 Height 5 ft 8 in Weight 206 lb 6 oz BMI 31.4 BP 130/82 Blood Pressure Location Lt brachial Position Sitting Pulse 88 Pulse Source Pulse Oximeter Pulse Oximetry (%) 95 Oxygen Delivery Method Room Air Intake Visit Reasons: f/u HTN Intake Note: Patient is here to follow up on his hypertention and diabetes. Allergies No Known Allergies Allergy (Verified 12/09/22 15:54) Tobacco use date assessed: 12/09/22 Fall risk assessment: No Falls in past year Last assessed Fall Risk: 12/09/22 HPI f/u HTN HPI Details 62 y/o male presents to f/u hypertension . Blood pressure today 130/82. He is on amlodipine 10mg, HCTZ 25mg daily. Pt reports some neck pain. 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 Melecio Leiva, Ingrid Rivera, Abelino Sosa and colleagues, with an educational jacqueline from [employer]. Physical exam (Primary Care) Vital Signs: Last Vital Signs Pulse 88 12/09/22 15:51 BP 130/82 12/09/22 15:51 Pulse Ox 95 12/09/22 15:51 Oxygen Delivery Method Room Air 12/09/22 15:51 BMI result Body Mass Index 31.4 Tobacco/Smoking Status: Tobacco use Status Tobacco use date assessed 12/09/22 12/09/22 15:56 Patient Tobacco Use Status Former Tobacco user 12/09/22 15:52 e-Cigarette/Vaping Use Never Used 12/09/22 15:52 Thrive Assessment: Date of Thrive Assessment Date Thrive assessed 03/09/22 12/09/22 15:52 Results AMB Hemoglobin A1c AMB Hemoglobin A1c 6.6 % Last Edit by Mariluz Veliz CMA on 12/09/22 16:13 Assessment and Plan Assessment & Plan (1) Essential hypertension: Code(s): I10 - Essential (primary) hypertension Plan: Blood?pressure?is?fairly?well?controlled.??Goal?is?less?than?130/80 However,?blood?pressures?are?going?high?periodically. Had?discontinued?lisinopril?as?he?was?getting?a?cough. He?has?had?his?amlodipine?increased?and?he?continues?hydrochlorothiazide. Will?add?losartan?in?a?combo?pill?with?hydrochlorothiazide He?will?return?in?1-2?weeks?to?follow-up?on?blood?pressure?with?the?nurse?who?ca n?also?check?his?BP?meter May?need?to?increase?hydrochlorothiazide?in?his?combo?pill?if?he?is?not? better?controlled. (2) Diabetes type 2, controlled: Code(s): E11.9 - Type 2 diabetes mellitus without complications Qualifiers: Diabetes mellitus complication status: without complication Diabetes mellitus terminal operations supervisor insulin use: without mcfp use Qualified Code(s): E11.9 - Type 2 diabetes mellitus without complications Plan: A1c?6.6%.??Good?control.??Goal?is?less?than?7.0% Continue?current?medication?regimen (3) Cervicalgia: Code(s): M54.2 - Cervicalgia Plan: Posterior?neck?muscle?tension?and?discomfort Start?physical?therapy Orders: Orders AMB Hemoglobin A1c Today Z13.9 - Encounter for screening, unspecified PT Evaluation and Treatment Today M54.2 - Cervicalgia Medications: New losartan-hydrochlorothiazide 100-12.5 mg 1 tab PO DAILY 30 days 30 tabs 2RF Discontinued hydrochlorothiazide Discontinued Reason: Doctor's Order 25 mg PO DAILY 90 tabs 2RF Coding Level of Care Code Est Pt Level 4 (34446) Diagnoses Essential hypertension I10 Controlled type 2 diabetes mellitus without complication, without long-term current use of insulin E11.9 Diabetes mellitus complication status: without complication Diabetes mellitus terminal operations supervisor insulin use: without mcfp use Cervicalgia M54.2
== END 2022-12-09 16:35 | disposition home or self-care (01) ==
PROVIDERS: PCP Family Medicine; Visit Provider Family Medicine
DX: I10 Essential (primary) hypertension (principal); E11.9 Type 2 diabetes mellitus without complications; M54.2 Cervicalgia
CPT/HCPCS: 83036; 99214

== ENCOUNTER → 2022-12-13 15:34 | Outpatient (BNVA) | payer OTHER, SELFPAY | PROVIDERS: PCP Family Medicine; Visit Provider Nurse Practitioner Family ==

== ENCOUNTER → 2022-12-13 15:34 | Outpatient (BNVA) | payer OTHER, SELFPAY | PROVIDERS: PCP Family Medicine; Visit Provider Nurse Practitioner Family ==

== ENCOUNTER 2023-02-10 15:35 | Outpatient (REF) | payer SELFPAY ==
--- NOTE | 2023-02-13 08:22 | MHC.AU.HA3 ---
Hearing Instrument Follow-Up- Binaural Date of Visit: 02/10/23 Right Ear: Brett, Model, Color, Serial Number: Betty Nava 50-Direct Silver Marie Serial #[id number] Bottle Labeler Repair Warranty: 10/28/2020 Bottle Labeler Loss and Damage Warranty: 10/28/2020 [facility] Service Plan: Battery Size: 13 Arc And Gas Welder/Slim Tube: 3xUP Earmold/Dome/CShell/SlimTip:CSHELL [id number] Type of Wax Guard: CERUSTOP Dispensed By: [facility] Date of Fittin09/05/2017 Left Ear: Brett, Model, Color, Serial Number: Betty Nava 50-Direct Silver Marie Serial #[id number] Bottle Labeler Repair Warranty: 10/28/2020 Bottle Labeler Loss and Damage Warranty: 10/28/2020 [facility] Service Plan: Battery Size: 13 Arc And Gas Welder/Slim Tube: 3xUP Earmold/Dome/CShell/SlimTip: CSHELL [id number] Type of Wax Guard: CERUSTOP Dispensed By: [facility] Date of Fittin09/05/2017 Follow-Up Summary: Melecio visited with c/o both hearing aids sounding weak, especially the right one. Thoroughly cleaned aids, including hvac/r instructor contacts, listening check OK after cleaning. Otoscopy clear bilaterally. Melecio is interested in new hearing aids and will contact his PCP for an order for a hearing test. Briefly discussed pricing and changes in technology since his last fitting. Recommendations: Recommendations (Other): Return for an updated hearing test and hearing aid evaluation. Diagnosis Code(s): Primary Diagnosis: H90.3 Bilateral Sensorineural Hearing Loss Signature: Provider: Reji Shook, [facility]
== END 2023-02-10 15:36 | disposition home or self-care (01) ==
LOC: HO.HAP 15:35
PROVIDERS: Visit Provider Family Medicine
DX: Z46.1 Encounter for fitting and adjustment of hearing aid (principal); H90.3 Sensorineural hearing loss, bilateral
CPT/HCPCS: 92593

== ENCOUNTER 2023-03-20 15:27 | Outpatient (AMB) | payer OTHER, SELFPAY ==
[2023-03-20 15:32] VITALS: BP 128/80; PULSE 76; O2SAT 97; BMI 32.1
--- NOTE | 2023-03-20 15:32 | A.OFFPC_ITS ---
Vital Signs 03/20/23 15:32 Height 5 ft 8 in Weight 211 lb 4 oz BMI 32.1 BP 128/80 Blood Pressure Location Lt brachial Position Sitting Pulse 76 Pulse Source Pulse Oximeter Pulse Oximetry (%) 97 Oxygen Delivery Method Room Air Intake Visit Reasons: f/u hypertension and back pain Intake Note: Patient is here to follow up on hypertension and back pain. Allergies No Known Allergies Allergy (Verified 03/20/23 15:34) Tobacco use date assessed: 03/20/23 Fall risk assessment: 1 Fall in past year Last assessed Fall Risk: 03/20/23 Dental Screening Dental Screen Date: 03/20/23 Did you have a dental visit in the last 12 months?: Yes Did you have a dental problem in the last 6 months where you did not have access to dental care?: No Was dental information given to patient?: Patient has dentist HPI f/u hypertension and back pain HPI Details 62 y/o male presents to f/u hypertension and back pain. Blood pressure today 128/80. He is on losartan-HCTZ 100-12.5mg daily and amlodipine 10mg. A1c today 03/20/23 6.9% which had went up a bit. 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 Melecio Leiva, Ingrid Rivera, Abelino Sosa and colleagues, with an educational jacqueline from [employer]. Review of Systems Const Denies chills, Denies fatigue, Denies fever(s), Denies headache(s) and Denies weakness ENT Denies dizziness and Denies headache(s) Card Denies chest pain, Denies lightheadedness, Denies dyspnea and Denies other (Palpitations) Resp Denies cough, Denies dyspnea, Denies wheezing and Denies other ( shortness of breath) Musc Denies numbness and Denies tingling Neuro Denies dizziness, Denies headache(s), Denies numbness, Denies tingling, Denies paresthesias and Denies weakness Psych Denies anxiety and Denies depression Endo Denies fatigue Aller/Immun Denies wheezing Physical exam (Primary Care) Vital Signs: Last Vital Signs Pulse 76 03/20/23 15:32 BP 128/80 03/20/23 15:32 Pulse Ox 97 03/20/23 15:32 Oxygen Delivery Method Room Air 03/20/23 15:32 BMI result Body Mass Index 32.1 Tobacco/Smoking Status: Tobacco use Status Tobacco use date assessed 03/20/23 03/20/23 15:38 Patient Tobacco Use Status Former Tobacco user 03/20/23 15:38 e-Cigarette/Vaping Use Never Used 03/20/23 15:38 Thrive Assessment: Date of Thrive Assessment Date Thrive assessed 03/09/22 03/20/23 15:38 Const General: no acute distress and well developed Nutritional Appearance: well nourished Orientation/consciousness: [facility] x3 [facility]: Yes normocephalic and Yes atraumatic Eyes General: appearance normal, both eyes and all related structures Pupils: Equal, round and reactive pupils present EOM: EOMs intact bilaterally Resp Effort & Inspection: normal respiratory effort Auscultation: clear to auscultation bilaterally Cardio Rate: regular rate Rhythm: regular rhythm Heart sounds: S1 normal heart sound present, S2 normal heart sound present, no gallops, no murmurs and no rubs Neuro General: patient oriented x3 and gait normal Cranial nerves: Yes Equal, round and reactive pupils present Psych Affect: normal affect Results AMB Hemoglobin A1c AMB Hemoglobin A1c 6.9 % Last Edit by Mariluz Veliz CMA on 03/20/23 15:50 Assessment and Plan Assessment & Plan (1) Essential hypertension: Code(s): I10 - Essential (primary) hypertension Plan: Sugars?controlled.??Goal?is?less?than?130/80 Continue?current?medication Encouraged?exercise (2) Cervicalgia: Code(s): M54.2 - Cervicalgia Plan: Still?has?mild?neck?stiffness?but?wants?to?hold?off?on?physical?therapy Continue?heat?and?gentle?exercise (3) Back Pain: Code(s): M54.9 - Dorsalgia, unspecified Plan: This?seems?to?have?resolved (4) Coronary artery disease: Code(s): I25.10 - Atherosclerotic heart disease of [place] coronary artery without angina pectoris Plan: Stable (5) Diabetes type 2, controlled: Code(s): E11.9 - Type 2 diabetes mellitus without complications Qualifiers: Diabetes mellitus complication status: without complication Diabetes mellitus extermination inspector insulin use: without extermination inspector use Qualified Code(s): E11.9 - Type 2 diabetes mellitus without complications Plan: A1c?yuri?from?6.6%?to?6.9%.??Goal?is?less?than?7.0% Continue?current?medication?regimen?and?work?on?a?diet?lower?in?sugars?and?sta rches Encouraged?exercise Orders: Orders AMB Hemoglobin A1c Today Z13.9 - Encounter for screening, unspecified Coding Level of Care Code Est Pt Level 4 (22116) Diagnoses Essential hypertension I10 Cervicalgia M54.2 Back Pain M54.9 Coronary artery disease I25.10 Controlled type 2 diabetes mellitus without complication, without long-term current use of insulin E11.9 Diabetes mellitus complication status: without complication Diabetes mellitus extermination inspector insulin use: without senior living use
== END 2023-03-20 16:03 | disposition home or self-care (01) ==
PROVIDERS: PCP Family Medicine; Visit Provider Family Medicine
DX: E11.9 Type 2 diabetes mellitus without complications (principal); I10 Essential (primary) hypertension; M54.2 Cervicalgia; M54.9 Dorsalgia, unspecified; I25.10 Atherosclerotic heart disease of native coronary artery without angina pectoris
CPT/HCPCS: 83036; 99214

== ENCOUNTER 2023-06-16 14:23 | Outpatient (AMB) | payer OTHER, SELFPAY ==
[2023-06-16 14:37] VITALS: BP 136/80; PULSE 75; O2SAT 93; BMI 33.1
--- NOTE | 2023-06-16 14:37 | A.OFFPC_ITS ---
Vital Signs 06/16/23 14:37 Height 5 ft 8 in Weight 218 lb BMI 33.1 BP 136/80 Blood Pressure Location Lt brachial Position Sitting Pulse 75 Pulse Source Pulse Oximeter Pulse Oximetry (%) 93 Oxygen Delivery Method Room Air Intake Visit Reasons: follow up htn Intake Note: Patient is here to follow up on his blood pressure today. Allergies No Known Allergies Allergy (Verified 06/16/23 14:43) Medication List - Last Reconciled 06/16/23 by Saul Horton MD amlodipine 10 mg PO DAILY aspirin 81 mg PO DAILY atorvastatin 80 mg PO DAILY 90 days blood pressure monitor Automatic, Digital. Dx: I10. Daily As directed, 999 days/lifetime blood sugar diagnostic (FreeStyle Lite Strips) As directed check bloodsugar once daily blood-glucose meter ([employer] [place] Lite kit) As directed bupropion HCl 75 mg PO BID 90 days glipizide ER 5 mg PO DAILY 30 days ibuprofen 600 mg PO TID PRN 30 days lancets (FreeStyle Lancets) USE 1 TO CHECK GLUCOSE ONCE DAILY levothyroxine 50 mcg PO DAILY losartan-hydrochlorothiazide 100-12.5 mg 1 tab PO DAILY 30 days metformin 500 mg PO BID 90 days ropinirole 1 mg PO BID 90 days sildenafil 50 mg PO DAILY PRN 30 days tamsulosin 0.4 mg PO DAILY 90 days trazodone 100 mg PO BEDTIME 30 days Tobacco use date assessed: 06/16/23 Fall risk assessment: No Falls in past year Last assessed Fall Risk: 06/16/23 Dental Screening Dental Screen Date: 03/20/23 HPI follow up htn HPI Details 62 y/o male presents to f/u diabetes and hypertension. Last A1c 03/20/23 6.9%. A1c today 06/16/23 6.8%. He is on metformin 500mg b.i.d, glipizide 5mg daily. Blood pressure today 136/80. He is on amlodipine 10mg, losartan-HCTZ 100-12.5mg daily. RODNEY-7 4 today - mild anxiety. Pt reports L elbow pain. 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 1. Little interest or pleasure in doing things: not at all 2. Feeling down, depressed, or hopeless: not at all 3. Trouble falling or staying asleep, or sleeping too much: not at all 4. Feeling tired or having little energy: not at all 5. Poor appetite or overeating: not at all 6. Feeling bad about yourself - or that you are a failure or have let yourself or your family down: not at all 7. Trouble concentrating on things, such as reading the newspaper or watching television: not at all 8. Moving or speaking so slowly that other people could have noticed. Or the opposite - being so fidgety or restless that you have been moving around a lot more than usual: not at all 9. Thoughts that you would be better off or of hurting yourself in some way: not at all Total score: 0 Depression Screening Interpretation: Negative Depression Screening Done: Yes 95145 - PHQ-9 Billing: Yes Source: Developed by Drs. Melecio Leiva, Ingrid Rivera, Abelino Sosa and colleagues, with an educational jacqueline from [employer] Thrive Questionnaire Date Thrive assessed: 06/16/23 I am a: Patient What is your living situation today?: I have a steady place to live Within the past 12 months, did the food you bought not last and you didn't have the money to get more?: Never true Within the past 12 months, did you worry whether your food would run out before you got money to buy more?: Never true Do you have trouble paying for medicines?: No Do you have trouble getting transportation to medical appointments?: No Do you have trouble paying your heating and electricity bill?: No Do you have trouble taking care of your child, family member or friend?: No Do you have trouble with day-to-day activities such as bathing, preparing meals, shopping, managing finances, etc.?: No Are you currently unemployed and looking for a job?: No Are you interested in more education?: No THRIVE Score: 0 AUDIT C Alcohol Use Questionnaire (AUDIT-C) 1. How often do you have a drink containing alcohol?: Monthly or less 2. How many drinks containing alcohol do you have on a typical day when you are drinking?: 1 or 2 3. How often do you have six or more drinks on one occasion?: Never Total Score: 1 RODNEY-7 AMB Questionnaire RODNEY-7 Date RODNEY - 7 assessed: 06/16/23 Feeling nervous, anxious, or on edge: 0 = Not at all Not being able to stop or control worryin = Several days Worrying too much about different things: 1 = Several days Trouble relaxin = Several days Being so restless that it is hard to sit still: 0 = Not at all Becoming easily annoyed or irritable: 0 = Not at all Feeling afraid as if something awful might happen: 1 = Several days Total RODNEY-7 score (0-4 normal; 5-9 mild; 10-14 moderate; 15-21 severe): 4 Source: Developed by Drs. Melecio Leiva, Ingrid Rivera, Abelino Sosa and colleagues, with an educational jacqueline from [employer] RODNEY-7 Assessment Billing RODNEY-7 Assessment Tool: RODNEY-7 Assessment 64987 Review of Systems Const Denies chills, Denies fatigue, Denies fever(s), Denies headache(s) and Denies weakness ENT Denies dizziness and Denies headache(s) Card Denies dyspnea Resp Denies cough, Denies dyspnea, Denies wheezing and Denies other (shortness of breath) Musc Denies numbness and Denies tingling Neuro Denies dizziness, Denies headache(s), Denies numbness, Denies tingling and Denies weakness Psych Reports anxiety Endo Denies fatigue Aller/Immun Denies wheezing Physical exam (Primary Care) Vital Signs: Last Vital Signs Pulse 75 06/16/23 14:37 BP 136/80 06/16/23 14:37 Pulse Ox 93 06/16/23 14:37 Oxygen Delivery Method Room Air 06/16/23 14:37 BMI result Body Mass Index 33.1 Tobacco/Smoking Status: Tobacco use Status Tobacco use date assessed 06/16/23 06/16/23 14:44 Patient Tobacco Use Status Former Tobacco user 06/16/23 14:41 e-Cigarette/Vaping Use Never Used 06/16/23 14:41 PHQ-9: PHQ-9 Score PHQ-9: Total score 0 06/16/23 15:05 Depression Screening Interpretation: Negative Thrive Assessment: Date of Thrive Assessment Date Thrive assessed 06/16/23 06/16/23 14:52 Const General: well developed; No acute distress Nutritional Appearance: well nourished Orientation/consciousness: patient oriented x3 HENMT Head: Yes normocephalic and Yes atraumatic Eyes General: appearance normal, both eyes and all related structures Pupils: Equal, round and reactive pupils present EOM: EOMs intact bilaterally Resp Effort & Inspection: normal respiratory effort Auscultation: clear to auscultation bilaterally Cardio Rate: regular rate Rhythm: regular rhythm Heart sounds: S1 normal heart sound present, S2 normal heart sound present, no gallops, no murmurs and no rubs Neuro General: patient oriented x3 and gait normal Cranial nerves: Yes Equal, round and reactive pupils present Psych Affect: normal affect Results AMB Hemoglobin A1c AMB Hemoglobin A1c 6.8 % Last Edit by Mariluz Veliz CMA on 06/16/23 15:27 Assessment and Plan Assessment & Plan (1) Essential hypertension: Code(s): I10 - Essential (primary) hypertension Plan: Blood?pressure?is?fairly?well?controlled.??Goal?is?less?than?140/80 Continue?current?medication?rest Will?continue?to?monitor?and?if?blood?pressure?is?still?rising?or?not?improved,? we?can?discuss?adjusting?his?medications?at?his?next?visit (2) Diabetes type 2, controlled: Code(s): E11.9 - Type 2 diabetes mellitus without complications Qualifiers: Diabetes mellitus complication status: without complication Diabetes mellitus senior care insulin use: without local intermodal truck driver use Qualified Code(s): E11.9 - Type 2 diabetes mellitus without complications Plan: A1c?improved?from?6.9%?to?6.8%.??Goal?is?less?than?7.0% Control Continue?to?work?at?a?diet?low?in?sugars?and?starches.??Encouraged?exercise?and? weight?loss (3) Coronary artery disease: Code(s): I25.10 - Atherosclerotic heart disease of [place] coronary artery without angina pectoris Plan: Stable Continue?aspirin?and?atorvastatin (4) Left tennis elbow: Code(s): M77.12 - Lateral epicondylitis, left elbow Plan: Left?medial?epicondylitis Will?refer?to?ortho?to?consider?injection?therapy Occupational?therapy (5) Back Pain: Code(s): M54.9 - Dorsalgia, unspecified Plan: Bilateral?back?pain?just?lateral?to?scapulae in?lower?latissimus?muscles?and?serratus?muscles Chest?x- ray?showed?some?disc?degeneration?in?thoracic?spine?but?otherwise?negative?for?a ny?acute?bony?processes Appears?to?be?muscular?strain Start?physical?therapy (6) Cough: Code(s): R05.9 - Cough, unspecified Plan: This?has?resolved (7) Dupuytren's contracture of both hands: Code(s): M72.0 - Palmar fascial fibromatosis [Dupuytren] Plan: Discussed?warm?compresses?and?NSAIDs?and?gentle?stretching Occupational?therapy I?am?referring?him?to?ortho?for?left?medial?epicondylitis?and?he?can?discuss?any ?further?interventions?with?ortho Orders: Orders AMB Hemoglobin A1c Today Z13.9 - Encounter for screening, unspecified OT Evaluation and Treatment Today M72.0 - Palmar fascial fibromatosis [Dupuytren], M77.12 - Lateral epicondylitis, left elbow PT Evaluation and Treatment Today M54.9 - Dorsalgia, unspecified Referrals Orthopedics Referral M72.0 - Palmar fascial fibromatosis [Dupuytren], M77.12 - Lateral epicondylitis, left elbow Coding Level of Care Code Est Pt Level 4 (03400) Diagnoses Essential hypertension I10 Controlled type 2 diabetes mellitus without complication, without long-term current use of insulin E11.9 Diabetes mellitus complication status: without complication Diabetes mellitus senior care insulin use: without local intermodal truck driver use Coronary artery disease I25.10 Left tennis elbow M77.12 Back Pain M54.9 Cough R05.9 Dupuytren's contracture of both hands M72.0 Additional Codes RODNEY-7 Assessment Billing - RODNEY-7 Assessment Tool: RODNEY-7 Assessment [id number] ([id number])
== END 2023-06-16 15:47 | disposition home or self-care (01) ==
PROVIDERS: PCP Family Medicine; Visit Provider Family Medicine
DX: I10 Essential (primary) hypertension (principal); E11.9 Type 2 diabetes mellitus without complications; I25.10 Atherosclerotic heart disease of native coronary artery without angina pectoris; M77.12 Lateral epicondylitis, left elbow; M54.9 Dorsalgia, unspecified; R05.9 Cough, unspecified; M72.0 Palmar fascial fibromatosis [Dupuytren]
CPT/HCPCS: 83036; 99214

== ENCOUNTER 2023-07-11 15:40 | Outpatient (AMB) | payer OTHER, SELFPAY ==
--- NOTE | 2023-07-11 15:43 | MHC.OFFVIS ---
Vital Signs 07/11/23 15:45 Height 5 ft 8 in Weight 218 lb BMI 33.1 Handedness Right Intake Visit Reasons: New Pt - Left elbow pain Intake Note: Melecio is a 62 year old right hand dominant male who presents today as a new patient for a evaluation of his left elbow pain. Patient reports off and on for 6 months. He expresses that his PCP gave him some pain medication which is giving him relief. Pain is focused on the whole elbow. Patient would like to know if there is anything else he can do to relief the pain. Allergies No Known Allergies Allergy (Verified 07/11/23 15:49) HPI HPI New Pt - Left elbow pain: Details: 62-year-old right hand dominant male who presents in the office today, as a new patient, for an evaluation of left elbow pain. Patient was referred to the office by his PCP pm 06/16/2023 for further evaluation and treatment. While in the office today the patient reports intermittent pain for 6 months. He reports his PCP gave him some pain medication that gave him relief. Claims pain is focused throughout the entire elbow. He is interested in discussing other pain management options. [facility] Medical History Hyperlipidemia Essential hypertension Atherosclerotic cardiovascular disease Surgical History History of coronary artery bypass graft (~2001) History of cholecystectomy Family History Father Heart disease Mother Pacemaker Other Substance use disorder Social History (Updated 07/11/23 @ 15:50 by Marisol Mohr) Housing: House Alcohol intake: current Alcohol intake frequency: holidays/special occasions only Patient Tobacco Use Status: Former Tobacco user Quit Date: 20 years ago e-Cigarette/Vaping Use: Never Used Second Hand Smoke Exposure: No service: Yes Current occupational status: employed 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 Current occupational exposures/hazards: No Cognitive needs: No Hearing needs: Yes (Hearing Aide) Vision needs: Yes (Glasses) Review of Systems Const All systems reviewed & are unremarkable except as noted in HPI and below Physical Exam Vital Signs: BMI result Body Mass Index 33.1 Const General: cooperative and no acute distress Orientation/consciousness: patient oriented x3 Resp Effort & Inspection: normal respiratory effort and able to speak in complete sentences Cardio Peripheral pulses: Peripheral pulses 2+ throughout Skin General skin exam: no rashes or lesions noted Neuro General: patient oriented x3 Extrem Other: Left elbow: Normal to inspection. No ecchymosis, erythema, or edema. No tenderness to palpation over the olecranon. No tenderness to the lateral epicondyle. Tenderness to palpation over the medial epicondyle. NVI. Assessment & Plan Assessment & Plan (1) Golfers elbow of left upper extremity: Code(s): M77.02 - Medial epicondylitis, left elbow Category: Medical Plan Mr. Christina is a 62-year-old right hand dominant male who presents in the office today, as a new patient, for an evaluation of left elbow pain. Patient was referred to the office by his PCP pm 06/16/2023 for further evaluation and treatment. While in the office today the patient reports intermittent pain for 6 months. He reports his PCP gave him some pain medication that gave him relief. Claims pain is focused throughout the entire elbow. He is interested in discussing other pain management options. A referral to PT was placed in the office today. We discussed the role of cortisone injections but have deferred at this time. Follow up will be in 6-8 weeks, or sooner if needed. Orders: Orders PT Evaluation and Treatment 07/11/23 M77.02 - Medial epicondylitis, left elbow Patient Instructions: Scribed by Priyanka Grubbs medical donation professional, for Jessica Gupta PA-C on 07/11/2023 at 3:54 pm, EST. Coding Level of Care Code New Pt Level 3 (48859) Diagnoses Golfers elbow of left upper extremity M77.02
[2023-07-11 15:45] VITALS: BMI 33.1
== END 2023-07-11 16:00 ==
PROVIDERS: PCP Family Medicine; Visit Provider Physician Assistant
DX: M77.02 Medial epicondylitis, left elbow (principal)
CPT/HCPCS: 99203

== ENCOUNTER → 2023-07-11 15:40 | Outpatient (BNVA) | payer OTHER, SELFPAY | PROVIDERS: PCP Family Medicine; Visit Provider Physician Assistant ==

== ENCOUNTER 2024-05-03 11:29 | Outpatient (AMB) | payer MEDICARE, MEDICAID, SELFPAY ==
--- NOTE | 2024-05-03 12:03 | A.OFFPC_ITS ---
Vital Signs 05/03/24 12:16 Height 5 ft 8 in Weight 207 lb BMI 31.5 BP 140/70 H Blood Pressure Location Rt brachial Position Sitting Respiration 14 Pulse 72 Pulse Source Pulse Oximeter Temp 97.6 F Temp Source Oral Pulse Oximetry (%) 96 Oxygen Delivery Method Room Air Intake Visit Reasons: Med. 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 Dx: I10. Daily As directed, 999 days/lifetime blood sugar diagnostic (FreeStyle Lite Strips) As directed check bloodsugar once daily blood-glucose meter (FreeStyle [place] Lite kit) As directed bupropion HCl 75 mg PO BID 90 days glipizide ER 5 mg PO DAILY 30 days lancets (FreeStyle Lancets) USE 1 TO CHECK GLUCOSE ONCE DAILY levothyroxine 50 mcg PO DAILY losartan-hydrochlorothiazide 100-12.5 mg 1 tab PO DAILY 30 days metformin 500 mg PO BID 90 days ropinirole 1 mg PO BID 90 days sildenafil 50 mg PO DAILY PRN 30 days sitagliptin phosphate 100 mg PO DAILY 90 days tamsulosin 0.4 mg PO DAILY 90 days trazodone 100 mg PO BEDTIME 30 days Tobacco use date assessed: 06/16/23 Dental Screening Dental Screen Date: 03/20/23 HPI Med. Review HPI Details 63 y/o male presents to f/u [facility]. A1c today 05/03/24 7.4%. He is on glipizide 5mg, metformin 500mg b.i.d. He notes he sometimes forgets to take his medications. He reports he feels his blood pressure has been increasing as well. BP today 140/70, 72p. He is on losartan-HCTZ 100-12.5mg daily, amlodopine 10mg. Denies chest pain but he states he does feel flushed at times. Reports ongoing back pain. Ongoing difficulty sleeping. Complaints of a skin tag, R groin. HPI Comments History of Present Illness Details Documentation assistance for Saul Horton MD, was provided by Sanchez Llenardo Mckeon,? Tele Marketing Executive on 05/03/2024 at 12:51 PM EST. I, Dr. Horton, have read, observed, and verified documentation. ?? 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 1. Little interest or pleasure in doing things: several days 2. Feeling down, depressed, or hopeless: several days 3. Trouble falling or staying asleep, or sleeping too much: several days 4. Feeling tired or having little energy: several days 5. Poor appetite or overeating: several days 6. Feeling bad about yourself - or that you are a failure or have let yourself or your family down: several days 7. Trouble concentrating on things, such as reading the newspaper or watching television: several days 8. Moving or speaking so slowly that other people could have noticed. Or the opposite - being so fidgety or restless that you have been moving around a lot more than usual: several days 9. Thoughts that you would be better off or of hurting yourself in some way: not at all Total score: 8 Source: Developed by Drs. Melecio Leiva, Ingrid Rivera, Abelino Sosa and colleagues, with an educational jacqueline from [employer]. Thrive Questionnaire Date Thrive assessed: 06/16/23 I am a: Patient What is your living situation today?: I have a place to live, but I am worried about losing it in the future Within the past 12 months, did the food you bought not last and you didn't have the money to get more?: Never true Within the past 12 months, did you worry whether your food would run out before you got money to buy more?: Never true Do you have trouble paying for medicines?: No Do you have trouble getting transportation to medical appointments?: No Do you have trouble paying your heating and electricity bill?: Yes Do you have trouble taking care of your child, family member or friend?: No Do you have trouble with day-to-day activities such as bathing, preparing meals, shopping, managing finances, etc.?: No Are you currently unemployed and looking for a job?: No Are you interested in more education?: No Please select the resources that you would like help with: None Currently or been in a relationship where the following occur: No concerns reported THRIVE Score: 2 AUDIT C Alcohol Use Questionnaire (AUDIT-C) 1. How often do you have a drink containing alcohol?: 2-3 times a week 2. How many drinks containing alcohol do you have on a typical day when you are drinking?: 1 or 2 3. How often do you have six or more drinks on one occasion?: Never Total Score: 3 RODNEY-7 AMB Questionnaire RODNEY-7 Date RODNEY - 7 assessed: 06/16/23 Feeling nervous, anxious, or on edge: 1 = Several days Not being able to stop or control worryin = Several days Worrying too much about different things: 1 = Several days Trouble relaxin = Several days Being so restless that it is hard to sit still: 1 = Several days Becoming easily annoyed or irritable: 1 = Several days Feeling afraid as if something awful might happen: 1 = Several days Total RODNEY-7 score (0-4 normal; 5-9 mild; 10-14 moderate; 15-21 severe): 7 Source: Developed by Drs. Melecio Leiva, Ingrid Rivera, Abelino Sosa and colleagues, with an educational jacqueline from [employer]. Review of Systems Const Denies chills, Denies fatigue, Denies fever(s), Denies headache(s) and Denies weakness ENT Denies dizziness and Denies headache(s) Card Denies dyspnea Resp Denies cough, Denies dyspnea, Denies wheezing and Denies other (shortness of breath) Musc Reports back pain, Denies numbness and Denies tingling Neuro Denies dizziness, Denies headache(s), Denies numbness, Denies tingling and Denies weakness Psych Denies anxiety and Denies depression Endo Denies fatigue Aller/Immun Denies wheezing Physical exam (Primary Care) Vital Signs: Last Vital Signs Temp 97.6 F 05/03/24 12:16 Pulse 72 05/03/24 12:16 Resp 14 05/03/24 12:16 BP 140/70 H 05/03/24 12:16 Pulse Ox 96 05/03/24 12:16 Oxygen Delivery Method Room Air 05/03/24 12:16 BMI result Body Mass Index 31.5 Tobacco/Smoking Status: Tobacco use Status Tobacco use date assessed 06/16/23 05/03/24 12:03 Patient Tobacco Use Status Former Tobacco user 05/03/24 12:03 e-Cigarette/Vaping Use Never Used 05/03/24 12:03 PHQ-9: PHQ-9 Score PHQ-9: Total score 8 05/03/24 12:47 Thrive Assessment: Date of Thrive Assessment Date Thrive assessed 06/16/23 05/03/24 12:03 Currently or been in a relationship where the following occur: No concerns reported Const General: well developed; No acute distress Nutritional Appearance: well nourished Orientation/consciousness: patient [facility]3 [facility] Head: Yes normocephalic and Yes atraumatic Eyes General: appearance normal, both eyes and all related structures Pupils: Equal, round and reactive pupils present EOM: EOMs intact bilaterally Resp Effort & Inspection: normal respiratory effort Neuro General: patient oriented x3 and gait normal Cranial nerves: Yes Equal, round and reactive pupils present Psych Affect: normal affect Coding Level of Care Code Est Pt Level 5 (09622) Diagnoses Mid back pain M54.9 Essential hypertension I10 Screening for colon cancer Z12.11 Low back pain M54.50 Difficulty sleeping G47.9 Hand pain M79.643 Skin tag L91.8 Controlled type 2 diabetes mellitus without complication, without long-term current use of insulin E11.9 Diabetes mellitus complication status: without complication Diabetes mellitus shelter insulin use: without shelter use Assessment & Plan Assessment & Plan (1) Mid back pain: Code(s): M54.9 - Dorsalgia, unspecified Category: Medical Plan: Longstanding?mid?back?pain?in?a?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 No?changes?to?his?other?blood?pressure?medication.??Amlodipine?10?mg?daily (3) Screening for colon cancer: Code(s): Z12.11 - Encounter for screening for malignant neoplasm of colon Category: Medical Plan: Patient?was?previously?referred?to?gastroenterology?was?never?scheduled or missed appt.. Referred?back?gastroenterology (4) Low back pain: Code(s): M54.50 - Low back pain, unspecified Category: Medical Plan: Checking?x-rays Referred?to ortho (5) Difficulty sleeping: Code(s): G47.9 - Sleep disorder, unspecified Category: Medical Plan: Refilled?trazodone?which?was?helping (6) Hand pain: Code(s): M79.643 - Pain in unspecified hand Category: Medical Plan: Tendon?contractures?bilateral?palms Offered?referral?to?hand?surgery?but?wants?to?wait.??He?will?use?heat?and?Asperc yogesh He?will?let?me?know?if?not?improving?or?worsens. 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 Continue?current?medication?regimen.??No?medication?changes?today?as?blood?sugar ?was?likely?elevated?due?to?interruption?of?his?medication Will?refill?testing?supplies Patient?would?like?to?try?a?continues?glucose?monitor.??Last?the?nurse?navigator ?to?see?if?get?trial Orders: Orders AMB Hemoglobin A1c 05/03/24 E11.8 - Type 2 diabetes mellitus with unspecified complications XR lumbar spine 2-3V 05/03/24 M54.50 - Low back pain, unspecified XR thoracic spine 2V 05/03/24 M54.9 - Dorsalgia, unspecified Referrals Orthopedics Referral M54.50 - Low back pain, unspecified, M54.9 - Dorsalgia, unspecified Nurse Navigator Referral E11.8 - Type 2 diabetes mellitus with unspecified complications Dermatology Referral L91.8 - Other hypertrophic disorders of the skin Medications: New losartan-hydrochlorothiazide 100-25 mg 1 tab PO DAILY 90 tabs 3RF 90 days calcium polycarbophil (FiberCon) 625 mg PO DAILY 30 tabs 2RF 30 days blood-glucose meter (FreeStyle Lite Meter kit) DX: E11.9, test blood sugar 2 times a day, duration 999 days 1 ea 0RF E11.9 - Type 2 diabetes mellitus without complications blood sugar diagnostic (FreeStyle Lite Strips) DX: E11.9, test blood sugar 2 times a day, 90 days 200 ea 4RF E11.9 - Type 2 diabetes mellitus without complications lancets (FreeStyle Lancets) As directed 200 ea 4RF DX: E11.9, test blood sugar 2 times a day, 90 day E11.9 - Type 2 diabetes mellitus without complications Refilled sitagliptin phosphate 100 mg PO DAILY 90 tabs 3RF 90 days losartan-hydrochlorothiazide 100-12.5 mg 1 tab PO DAILY 30 tabs 0RF 30 days trazodone 100 mg PO BEDTIME 30 tabs 0RF 30 days blood pressure monitor Automatic, Digital. Dx: I10. Daily As directed, 999 days/lifetime 1 ea 0RF I10 - Essential (primary) hypertension
[2024-05-03 12:16] VITALS: BP 140/70; PULSE 72; RESP 14; TEMP 36.4; O2SAT 96; BMI 31.5
--- OUTSIDE RECORDS SUMMARY | 2024-05-03 13:24 | XMS_ITS | Patient Health Record ---
Author Organization [facility] Address [address] [place] [address] Care Team Providers Care Meteorology Faculty Member Name Role Phone Saul Horton Primary Care Provider Unavailab Devon Pyle Jr Unavailable Reason For Referral No Information Medications Medication SIG (Take, Route, Frequency, Duration) Notes Start Date End Date Status Levothyroxine Sodium 50 MCG Orally Once a day Active Ecotrin 325 MG Orally Once a day Active Atorvastatin Calcium 80 MG Orally Once a day Active rOPINIRole HCl 1 MG Orally Once a day Active metFORMIN HCl 500 MG 1 tablet with meals Orally Twice a day Active Tamsulosin HCl 0.4 MG 1 capsule Orally O nce a day Active Viagra 100 MG 1 tablet as needed Orally prn Active traZODone HCl 100 MG Orally Once a day Active hydroCHLOROthiazide 25 MG Orally Once a day Active PARoxetine HCl 40 MG Orally Active Colyte with Flavor Packs 240 GM As direc santiago Orally Over the specified time. for 1 day(s) Active Diclofenac Sodium 75 MG 1 tablet with fo od or milk Orally Twice a day Active Social History Tobacco Use: Social History Observation Description Date Details (start date - stop date) Former Smoker NA - NA Tobacco Use/Smoking Question Answer Notes Patient is a former smoker How long has it been since you last smoked? > 10 years Alcohol Screen Question Answer Notes Did you have a drink containing alcohol in the p ast year? No Points 0 Interpretation Negative Problems Problem Type SNOMED Code ICD Code Onset Dates Problem Status W/U Status Risk Notes Problem [id number] Colon cancer screening (Z12.11) Active confirmed Problem [id number] Abdominal bloating (R14.0) Active confirmed Plan Of Treatment Future Test Test Name Order Date COLONOSCOPY 03/01/2017 Insurance Providers Payer Name Payer Address Payer Phone Subscriber Number Group Number Insured Name Patient Relationship to Insured Coverage Start Date Coverage End Date HEALTH PLANS [address] [place], [place] [id number] ALICIA SOLIS Self - patient is the insured Medical (General) History Medical History History ICD Code coronary artery disease hearing loss diabetes mellitus type 2 anger management elevated cholesterol enlarged prostate hypothyroidism Surgical History Surgery Date(Month/Year) cholecystectomy bypass grafting eye surgery
== END 2024-05-03 13:15 | disposition home or self-care (01) ==
PROVIDERS: PCP Family Medicine; Visit Provider Family Medicine
DX: M54.9 Dorsalgia, unspecified (principal); I10 Essential (primary) hypertension; E11.9 Type 2 diabetes mellitus without complications; Z12.11 Encounter for screening for malignant neoplasm of colon; M54.50 Low back pain, unspecified; G47.9 Sleep disorder, unspecified; M79.641 Pain in right hand; L91.8 Other hypertrophic disorders of the skin; M79.642 Pain in left hand

== ENCOUNTER 2024-05-03 11:29 | Outpatient (REF) | payer MEDICARE, MEDICAID, SELFPAY ==
--- NOTE | ~2024-05-03 | XR_ITS ---
EXAMINATION: XR THORACIC SPINE CLINICAL INFORMATION: M54.9 - Dorsalgia, unspecified COMPARISON: None. Correlation made with chest radiograph 06/06/2022. TECHNIQUE: 3 views of the thoracic spine were obtained. FINDINGS: No significant scoliosis. Normal kyphosis. No fracture, compression deformity, or suspicious bone lesion. No subluxations. Normal alignment. Mild to moderate multilevel disc degeneration, most significant in the mid thoracic region. Mild sclerosis of the endplates present at T7-T8. Normal facet alignment. Mild degenerative facet changes, multilevel. Swimmer's view demonstrates disc degeneration focally at C5-6. There is been a prior median sternotomy. Imaged mediastinum, soft tissues, and lungs are not remarkable allowing for technique. XR/XR thoracic spine 2V IMPRESSION: 1. Mild to moderate spondylosis of the thoracic spine. No acute bony abnormalities. Electronically signed by: Frank Davis MD 05/07/2024 08:11 AM EDT
--- NOTE | ~2024-05-03 | XR_ITS ---
EXAMINATION: XR LUMBOSACRAL SPINE CLINICAL INFORMATION: M54.50 - Low back pain, unspecified COMPARISON: None available. TECHNIQUE: Three views of the lumbosacral spine. FINDINGS: There is a gentle right convex thoracolumbar scoliosis. There is a normal lordosis. There is no fracture, compression deformity, or suspicious bone lesion. Moderate disc degeneration present T12-L1 and L1-L2, with disc vacuum phenomenon and mild disc osteophytic spurs. There is otherwise mild disc degeneration spanning L2-S1. There is a 2 mm degenerative appearing retrolisthesis of L1 on L2, and L2 on L3. There is a trace degenerative anterolisthesis L4 on L5. Alignment otherwise anatomic. Normal facet alignment. There are sclerotic degenerative facet changes mainly spanning L3-S1. Soft tissues demonstrate vascular calcifications. XR/XR lumbar spine 2-3V IMPRESSION: 1. No acute bony abnormalities. 2. Moderate degenerative spondylosis of the lumbar spine as described. Electronically signed by: Frank Davis MD 05/07/2024 08:15 AM EDT
== END 2024-05-03 11:30 | disposition home or self-care (01) ==
LOC: HO.XRAY 11:29
PROVIDERS: PCP Family Medicine; Visit Provider Family Medicine
DX: M54.50 Low back pain, unspecified (principal); M54.9 Dorsalgia, unspecified; I10 Essential (primary) hypertension; G47.9 Sleep disorder, unspecified; M79.643 Pain in unspecified hand; L91.8 Other hypertrophic disorders of the skin; E11.9 Type 2 diabetes mellitus without complications
CPT/HCPCS: 72070; 72100; 99212

== ENCOUNTER → 2024-05-03 16:40 | Outpatient (BNV) | payer MEDICARE, MEDICAID, SELFPAY | PROVIDERS: PCP Family Medicine; Visit Provider Radiology Diagnostic Radiology | DX: M54.50 Low back pain, unspecified (principal); M54.9 Dorsalgia, unspecified | CPT/HCPCS: 72070; 72100 ==

== ENCOUNTER → 2024-06-21 15:15 | Outpatient (BNVA) | payer MEDICARE, MEDICAID, SELFPAY | PROVIDERS: PCP Family Medicine ==

== ENCOUNTER → 2024-06-24 09:41 | Outpatient (BNVA) | payer MEDICARE, MEDICAID, SELFPAY | PROVIDERS: PCP Family Medicine | DX: Z13.89 Encounter for screening for other disorder (principal) ==

== ENCOUNTER 2024-07-15 13:56 | Outpatient (REF) | payer MEDICARE, MEDICAID, SELFPAY ==
--- OUTSIDE RECORDS SUMMARY | 2024-07-15 14:09 | XMS_ITS | Patient Health Record ---
Author Organization [facility] Address [address] [place] [address] Care Team Providers Care Load Mixer Name Role Phone Saul Horton Primary Care [...] Problem Status W/U Status Risk Notes Problem [id number] Colon cancer screening (Z12.11) Active confirmed Problem [id number] Abdominal bloating (R14.0) Active confirmed Plan Of Treatment Future Test Test Name Order Date COLONOSCOPY 03/01/2017 Insurance Providers Payer Name Payer Address Payer Phone Subscriber Number Group Number Insured Name Patient Relationship to Insured Coverage Start Date Coverage End Date HEALTH PLANS [address] [place], [place] [id number] ALICIA SOLIS Self - patient is the insured Medical (General) History Medical History History ICD Code coronary artery disease hearing loss diabetes mellitus type 2 anger management elevated cholesterol enlarged prostate hypothyroidism Surgical History Surgery Date(Month/Year) cholecystectomy bypass grafting eye surgery
== END 2024-07-15 13:57 | disposition home or self-care (01) ==
LOC: HO.LAB 13:56
PROVIDERS: PCP Family Medicine; Visit Provider Family Medicine
DX: Z13.89 Encounter for screening for other disorder (principal)

== ENCOUNTER 2024-08-09 16:16 | Outpatient (AMB) | payer MEDICARE, MEDICAID, SELFPAY ==
--- OUTSIDE RECORDS SUMMARY | 2024-08-09 16:19 | XMS_ITS | Patient Health Record ---
Author Organization [facility] Address [address] [place] [address] Care Team Providers Care Meat Seafood Associate Name Role Phone Saul Horton Primary Care [...] Problem Status W/U Status Risk Notes Problem [id number] Colon cancer screening (Z12.11) Active confirmed Problem [id number] Abdominal bloating (R14.0) Active confirmed Plan Of Treatment Future Test Test Name Order Date COLONOSCOPY 03/01/2017 Insurance Providers Payer Name Payer Address Payer Phone Subscriber Number Group Number Insured Name Patient Relationship to Insured Coverage Start Date Coverage End Date HEALTH PLANS [address] [place], [place] [id number] ALICIA SOLIS Self - patient is the insured Medical (General) History Medical History History ICD Code coronary artery disease hearing loss diabetes mellitus type 2 anger management elevated cholesterol enlarged prostate hypothyroidism Surgical History Surgery Date(Month/Year) cholecystectomy bypass grafting eye surgery
--- NOTE | 2024-08-09 16:26 | MHC.PC.OV ---
Vital Signs 08/09/24 16:35 Height 5 ft 8 in Weight 210 lb 6 oz BMI 32.0 BP 110/60 Blood Pressure Location Lt brachial Position Sitting Respiration 16 Pulse 88 Pulse Source Pulse Oximeter Temp 98.0 F Temp Source Oral Pulse Oximetry (%) 94 Oxygen Delivery Method Room Air Intake Visit Reasons: f/u diabetes, HTN Intake Note: patient is scheduled for dm and htn Dental Specialist Required: No Allergies No Known Allergies Allergy (Verified 08/09/24 16:29) Medication List - Last Reconciled 08/09/24 by Saul Horton MD amlodipine 10 mg PO DAILY aspirin 81 mg PO DAILY atorvastatin 80 mg PO DAILY 90 days blood pressure monitor Automatic, Digital. Dx: I10. Daily As directed, 999 days/lifetime blood sugar diagnostic (FreeStyle Lite Strips) As directed check bloodsugar once daily blood sugar diagnostic (FreeStyle Lite Strips) DX: E11.9, test blood sugar ONCE DAILY, 90 days blood-glucose meter (FreeStyle [place] Lite kit) As directed blood-glucose meter (FreeStyle Lite Meter kit) DX: E11.9, test blood sugar 2 times a day, duration 999 days blood-glucose sensor (FreeStyle Kavin 3 Sensor device) To test blood sugar for 14 days, As directed, 84 days calcium polycarbophil (FiberCon) 625 mg PO DAILY 30 days cyclobenzaprine 10 mg PO Q12H PRN 10 days diclofenac potassium 50 mg PO BID 30 days glipizide ER 5 mg PO DAILY 30 days glucose 4 grams PO Q15M PRN 30 days lancets (FreeStyle Lancets) As directed lancets (FreeStyle Lancets) USE 1 TO CHECK GLUCOSE ONCE DAILY, 90 days levothyroxine 50 mcg PO DAILY losartan-hydrochlorothiazide 100-25 mg 1 tab PO DAILY 90 days metformin 500 mg PO BID 90 days ropinirole 1 mg PO BID 90 days sildenafil 50 mg PO DAILY PRN 30 days tamsulosin 0.4 mg PO DAILY 90 days trazodone 100 mg PO BEDTIME 30 days Tobacco use date assessed: 06/16/23 Dental Screening Dental Screen Date: 03/20/23 HPI f/u diabetes, HTN HPI Details 63 y/o male presents to f/u diabetes, HTN. A1c today 08/09/24 6.8%. Was 6.8% about a year ago. He is on glipizide 5mg, metformin 500mg b.i.d. Blood pressure today 110/60, 88p. He is on losartan-HCTZ, amlodipine 10mg daily. Pt notes he has been exercising more frequently. Has an upcoming appt. with ortho for his back in August. Has been taking tylenol which he notes has not really been helping. [facility] Medical History Hyperlipidemia Essential hypertension Atherosclerotic cardiovascular disease Surgical History History of coronary artery bypass graft (~2001) History of cholecystectomy Family History Father Heart disease Mother Pacemaker Other Substance use disorder Social History (Updated 07/11/23 @ 15:50 by Marisol Mohr) Housing: House Alcohol intake: current Alcohol intake frequency: holidays/special occasions only Patient Tobacco Use Status: Former Tobacco user e-Cigarette/Vaping Use: Never Used Second Hand Smoke Exposure: No service: Yes Current occupational status: employed 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 Current occupational exposures/hazards: No Cognitive needs: No Hearing needs: Yes (Hearing Aide) Vision needs: Yes (Glasses) Questionnaire Thrive Questionnaire Date Thrive assessed: 05/03/24 I am a: Patient What is your living situation today?: I have a place to live, but I am worried about losing it in the future Within the past 12 months, did the food you bought not last and you didn't have the money to get more?: Never true Within the past 12 months, did you worry whether your food would run out before you got money to buy more?: Never true Do you have trouble paying for medicines?: No Do you have trouble getting transportation to medical appointments?: No Do you have trouble paying your heating and electricity bill?: Yes Do you have trouble taking care of your child, family member or friend?: No Do you have trouble with day-to-day activities such as bathing, preparing meals, shopping, managing finances, etc.?: No Are you currently unemployed and looking for a job?: No Are you interested in more education?: No Please select the resources that you would like help with: None Currently or been in a relationship where the following occur: No concerns reported THRIVE Score: 2 RODNEY-7 AMB Questionnaire RODNEY-7 Date RODNEY - 7 assessed: 06/16/23 Source: Developed by Drs. Melecio Leiva, Ingrid Rivera, Abelino Sosa and colleagues, with an educational jacqueline from [employer]. Review of Systems Const Denies chills, Denies fatigue, Denies fever(s), Denies headache(s) and Denies weakness ENT Denies dizziness and Denies headache(s) Card Denies dyspnea Resp Denies cough, Denies dyspnea, Denies wheezing and Denies other (shortness of breath) Musc Denies numbness and Denies tingling Neuro Denies dizziness, Denies headache(s), Denies numbness, Denies tingling and Denies weakness Psych Denies anxiety and Denies depression Endo Denies fatigue Aller/Immun Denies wheezing Physical exam (Primary Care) Vital Signs: Last Vital Signs Temp 98.0 F 08/09/24 16:35 Pulse 88 08/09/24 16:35 Resp 16 08/09/24 16:35 BP 110/60 08/09/24 16:35 Pulse Ox 94 08/09/24 16:35 Oxygen Delivery Method Room Air 08/09/24 16:35 BMI result Body Mass Index 32.0 Tobacco/Smoking Status: Tobacco use Status Tobacco use date assessed 06/16/23 08/09/24 16:27 Patient Tobacco Use Status Former Tobacco user 08/09/24 16:27 e-Cigarette/Vaping Use Never Used 08/09/24 16:27 Thrive Assessment: Date of Thrive Assessment Date Thrive assessed 05/03/24 08/09/24 16:27 Currently or been in a relationship where the following occur: No concerns reported Const General: well developed; No acute distress Nutritional Appearance: well nourished Orientation/consciousness: patient oriented x3 HENMT Head: Yes normocephalic and Yes atraumatic Eyes General: appearance normal, both eyes and all related structures Pupils: Equal, round and reactive pupils present EOM: EOMs intact bilaterally Resp Effort & Inspection: normal respiratory effort Back/Spine/Pelvis Thoracic/Lumbar Spine: Thoracic/lumbar scoliosis Neuro General: patient oriented x3 and gait normal Cranial nerves: Yes Equal, round and reactive pupils present Psych Affect: normal affect Results AMB Hemoglobin A1c AMB Hemoglobin A1c 6.8 % Last Edit by HARJINDER Luis on 08/09/24 16:44 Results Reviewed Results Reviewed: Laboratory Last Values Hgb A1c (Clinic) 6.8 % (4.0-6.0) H 08/09/24 16:42 Coding Level of Care Code Est Pt Level 5 (24324) Diagnoses Controlled type 2 diabetes mellitus without complication, without long-term current use of insulin E11.9 Diabetes mellitus complication status: without complication Diabetes mellitus assisted insulin use: without assisted use Coronary artery disease I25.10 Essential hypertension I10 Allergies T78.40XA Back Pain M54.9 Cough R05.9 Assessment & Plan Assessment & Plan (1) Diabetes type 2, controlled: Code(s): E11.9 - Type 2 diabetes mellitus without complications Category: Medical Qualifiers: Diabetes mellitus complication status: without complication Diabetes mellitus assisted insulin use: without assisted use Qualified Code(s): E11.9 - Type 2 diabetes mellitus without complications Plan: A1c?6.8%.??Good?control.??Goal?is?less?than?7.0% Continue?current?medication?regimen (2) Coronary artery disease: Code(s): I25.10 - Atherosclerotic heart disease of [place] coronary artery without angina pectoris Category: Medical Plan: Stable (3) Essential hypertension: Code(s): I10 - Essential (primary) hypertension Category: Medical Plan: Blood?pressure?is?controlled.??Goal?is?less?than?130/80 Continue?current?medication (4) Allergies: Code(s): T78.40XA - Allergy, unspecified, initial encounter Category: Medical Plan: Trials?cetirizine (5) Back Pain: Code(s): M54.9 - Dorsalgia, unspecified Category: Medical Plan: Ongoing?back?pain. X-ray?shows?spondylosis?but?acute?bony?abnormalities Will?give?him?a?script?for?diclofenac?and?cyclobenzaprine. Ice/heat He?has?an?appointment?with?Ortho?in?August (6) Cough: Code(s): R05.9 - Cough, unspecified Category: Medical Plan: Likely?secondary?to?allergies Trial?cetirizine Call?or?return?to?office?if?improved Orders: Orders AMB Hemoglobin A1c Today E11.8 - Type 2 diabetes mellitus with unspecified complications Lipid Panel Today Z00.00 - Encounter for general adult medical examination without abnormal findings TSH reflex Free T4 Today Z00.00 - Encounter for general adult medical examination without abnormal findings Comprehensive [place]. Panel Fast Today Z00.00 - Encounter for general adult medical examination without abnormal findings Microalbumin, Random (w Creat) Today I10 - Essential (primary) hypertension UA CC w/rflx Micro + Cult Today Z00.00 - Encounter for general adult medical examination without abnormal findings Medications: New diclofenac potassium 50 mg PO BID 30 days 60 tabs 3RF cyclobenzaprine 10 mg PO Q12H 10 days PRN 20 tabs 0RF muscle spasm cetirizine 10 mg PO DAILY 30 days PRN 30 tabs 3RF allergy symptoms Refilled calcium polycarbophil (FiberCon) 625 mg PO DAILY 30 days 30 tabs 2RF losartan-hydrochlorothiazide 100-25 mg 1 tab PO DAILY 90 days 90 tabs 3RF sildenafil administer 30 minutes to 4 hours before activity 50 mg PO DAILY 30 days PRN 10 tabs 0RF sexual activity Discontinued losartan-hydrochlorothiazide 100-12.5 mg Discontinued Reason: Doctor's Order 1 tab PO DAILY 30 days 30 tabs 0RF
[2024-08-09 16:35] VITALS: BP 110/60; PULSE 88; RESP 16; TEMP 36.7; O2SAT 94; BMI 32.0
== END 2024-08-09 17:17 | disposition home or self-care (01) ==
LOC: HO.HMCFM 16:17
PROVIDERS: PCP Family Medicine; Visit Provider Family Medicine
DX: E11.9 Type 2 diabetes mellitus without complications (principal); E11.8 Type 2 diabetes mellitus with unspecified complications; I25.10 Atherosclerotic heart disease of native coronary artery without angina pectoris; I10 Essential (primary) hypertension; T78.40XA Allergy, unspecified, initial encounter; M54.9 Dorsalgia, unspecified; R05.9 Cough, unspecified

== ENCOUNTER → 2024-08-09 16:16 | Outpatient (BNVA) | payer MEDICARE, OTHER, SELFPAY | PROVIDERS: PCP Family Medicine; Visit Provider Family Medicine | DX: E11.9 Type 2 diabetes mellitus without complications (principal); I25.10 Atherosclerotic heart disease of native coronary artery without angina pectoris; I10 Essential (primary) hypertension; M54.9 Dorsalgia, unspecified; R05.9 Cough, unspecified; T78.40XD Allergy, unspecified, subsequent encounter | CPT/HCPCS: 83036; 99212 ==

== ENCOUNTER 2024-09-19 10:00 | Outpatient (REF) | payer MEDICARE, OTHER, SELFPAY ==
--- OUTSIDE RECORDS SUMMARY | 2024-09-19 10:48 | XMS_ITS | Patient Health Record ---
Author Organization [facility] Address [address] [place] [address] Care Team Providers Care Swimming Coach Or Instructor Name Role Phone Saul Horton Primary Care Provider Unavailab Devon Pyle Jr Unavailable [phone] Reason For Referral No Information Medications Medication [...] Problem Status W/U Status Risk Notes Problem [id number] Colon cancer screening (Z12.11) Active confirmed Problem [id number] Abdominal bloating (R14.0) Active confirmed Plan Of Treatment Future Test Test Name Order Date COLONOSCOPY 03/01/2017 Insurance Providers Payer Name Payer Address Payer Phone Subscriber Number Group Number Insured Name Patient Relationship to Insured Coverage Start Date Coverage End Date [employer] [address] [place], [place] [id number] ALICIA SOLIS Self - patient is the insured Medical (General) History Medical History History ICD Code coronary artery disease hearing loss diabetes mellitus type 2 anger management elevated cholesterol enlarged prostate hypothyroidism Surgical History Surgery Date(Month/Year) cholecystectomy bypass grafting eye surgery
[2024-09-19 11:00] LABS: Appearance Urine Clear; Glucose Urine UA Negative (Negative); PH 6.0 (5.0-9.0); Specific Gravity - Urine >= 1.030 (1.005-1.025); UMIC TRIGGER UACC YES
[2024-09-19 11:19] LABS: Alanine Aminotransferase 57 U/L (0-40); Albumin Level 4.3 g/dL (3.5-5.0); Alkaline Phosphatase 75 U/L (39-117); Anion Gap 10 (12-20); Aspartate Amino Transferase 36 U/L (5-37); Blood Urea Nitrogen 15 mg/dL (9-16); Calcium 9.4 mg/dL (8.4-10.2); Carbon Dioxide 29 mmol/L (22-29); Chloride 105 mmol/L (96-108); Cholesterol 152 mg/dL (<200); Estimated Glomerular Filt Rate > 60; HDL Cholesterol 35 mg/dL (>40); Potassium 3.8 mmol/L (3.3-5.1); Sodium 140 mmol/L (135-145); Total Protein 7.1 g/dL (6.5-8.0); Triglycerides 108 mg/dL (<150)
[2024-09-19 11:36] LABS: Microalbum/Creatinine Ratio Ur 31.3 ug/mg cr (<30)
== END 2024-09-19 10:01 | disposition home or self-care (01) ==
LOC: HO.LAB 10:00
PROVIDERS: PCP Family Medicine; Visit Provider Family Medicine
DX: Z00.00 Encounter for general adult medical examination without abnormal findings (principal); M54.6 Pain in thoracic spine; G89.29 Other chronic pain; I10 Essential (primary) hypertension; Z79.1 Long term (current) use of non-steroidal anti-inflammatories (NSAID); Z79.82 Long term (current) use of aspirin; Z79.84 Long term (current) use of oral hypoglycemic drugs; Z79.4 Long term (current) use of insulin; Z79.890 Hormone replacement therapy; Z79.899 Other long term (current) drug therapy; Z87.891 Personal history of nicotine dependence
CPT/HCPCS: 36415; 80053; 80061; 81001; 81003; 82043; 82570; 84443; 99202

== ENCOUNTER 2024-09-19 10:24 | Outpatient (AMB) | payer MEDICARE, MEDICAID, SELFPAY ==
[2024-09-19 10:34] VITALS: BMI 31.9
--- NOTE | 2024-09-19 10:34 | MHC.OFFVIS ---
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 Patient was referred by PCP Saul Horton who has prescribed Diclofenac and Cyclobenzaprine. At today's visit the patient states that about over a year ago is when the pain started to flair up due to his constant dry cough. Patient states that he did not attend physical therapy or inquired about injections. He added that no numbness, tingling or pain radiating down. Patient reports that the mid back pain only hurts when he coughs. Allergies No Known Allergies Allergy (Verified 09/19/24 10:41) Medication List - Last Reconciled 09/19/24 by Ariadna Paris MD amlodipine 10 mg PO DAILY aspirin 81 mg PO DAILY atorvastatin 80 mg PO DAILY 90 days blood pressure monitor Automatic, Digital. Dx: I10. Daily As directed, 999 days/lifetime blood sugar diagnostic (FreeStyle Lite Strips) As directed check bloodsugar once daily blood sugar diagnostic (FreeStyle Lite Strips) DX: E11.9, test blood sugar ONCE DAILY, 90 days blood-glucose meter (FreeStyle [place] Lite kit) As directed blood-glucose meter (FreeStyle Lite Meter kit) DX: E11.9, test blood sugar 2 times a day, duration 999 days blood-glucose sensor (FreeStyle Kavin 3 Sensor device) To test blood sugar for 14 days, As directed, 84 days calcium polycarbophil (FiberCon) 625 mg PO DAILY 30 days cetirizine 10 mg PO DAILY PRN 30 days cyclobenzaprine 10 mg PO Q12H PRN 10 days diclofenac potassium 50 mg PO BID 30 days glipizide ER 5 mg PO DAILY 30 days glucose 4 grams PO Q15M PRN 30 days lancets (FreeStyle Lancets) As directed lancets (FreeStyle Lancets) USE 1 TO CHECK GLUCOSE ONCE DAILY, 90 days levothyroxine 50 mcg PO DAILY losartan-hydrochlorothiazide 100-25 mg 1 tab PO DAILY 90 days metformin 500 mg PO BID 90 days ropinirole 1 mg PO BID 90 days sildenafil 50 mg PO DAILY PRN 30 days tamsulosin 0.4 mg PO DAILY 90 days trazodone 100 mg PO BEDTIME 30 days HPI Comments Details: Chronic thoracic/upper back pain, right in the middle, at least a year. Worse with coughing. It went away awhile when cough resolved but when coughing returned, the back pain has been bad again. He was told to have viral infection again and chest is all congested. Even lower back hurting on the sides. Now middle part does not hurt too much. No falls or accidents. Denies history of osteoporosis. He reports previous back issues, had MRI and injections, oxycodone, around 20 years ago. [facility] Medical History (Reviewed 03/20/23 @ 15:35 by Mariluz Veliz [facility]) Hyperlipidemia Essential hypertension Atherosclerotic cardiovascular disease Surgical History History of coronary artery bypass graft (~2001) History of cholecystectomy Family History Father Heart disease Mother Pacemaker Other Substance use disorder Social History (Updated 07/11/23 @ 15:50 by Marisol Mohr) Housing: House Alcohol intake: current Alcohol intake frequency: holidays/special occasions only Patient Tobacco Use Status: Former Tobacco user e-Cigarette/Vaping Use: Never Used Second Hand Smoke Exposure: No service: Yes Current occupational status: employed 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 Patient was appropriately conversant and oriented. Good historian. MSK: No specific abnormalities found on inspection of the spine and all extremities. No pain with palpation over the lumbar area. No tenderness over spinous processes. Left lower thoracic/upper lumbar paraspinals appear more prominent in the right, and he did mentioned tenderness over the paraspinals. Lumbar ROM was full. Neurological: Neurologic examination of the upper and lower extremities was nonfocal with intact sensation, muscle stretch reflexes and without focal motor deficits . Louis?s negative bilaterally. Babinski was down going bilaterally. Clonus was negative. Gait is non-antalgic without loss of balance. Vital Signs: BMI result Body Mass Index 31.9 Results Reviewed Results Reviewed: I independently reviewed the results of the following: No acute fractures on thoracic or lumbar xrays in April 2024. Ordering Physician: Saul Horton MD Date of Service: 05/03/24 Procedure(s): XR thoracic spine 2V Accession Number(s): [id number] cc: Saul Horton MD~ EXAMINATION: XR THORACIC SPINE CLINICAL INFORMATION: M54.9 - Dorsalgia, unspecified COMPARISON: None. Correlation made with chest radiograph 06/06/2022. TECHNIQUE: 3 views of the thoracic spine were obtained. FINDINGS: No significant scoliosis. Normal kyphosis. No fracture, compression deformity, or suspicious bone lesion. No subluxations. Normal alignment. Mild to moderate multilevel disc degeneration, most significant in the mid thoracic region. Mild sclerosis of the endplates present at T7-T8. Normal facet alignment. Mild degenerative facet changes, multilevel. Swimmer's view demonstrates disc degeneration focally at C5-6. There is been a prior median sternotomy. Imaged mediastinum, soft tissues, and lungs are not remarkable allowing for technique. XR/XR thoracic spine 2V IMPRESSION: 1. Mild to moderate spondylosis of the thoracic spine. No acute bony abnormalities. Electronically signed by: Frank Davis MD 05/07/2024 08:11 AM EDT RP Ordering Physician: Saul Horton MD Date of Service: 05/03/24 Procedure(s): XR lumbar spine 2-3V Accession Number(s): [id number] cc: Saul Horton MD~ EXAMINATION: XR LUMBOSACRAL SPINE CLINICAL INFORMATION: M54.50 - Low back pain, unspecified COMPARISON: None available. TECHNIQUE: Three views of the lumbosacral spine. FINDINGS: There is a gentle right convex thoracolumbar scoliosis. There is a normal lordosis. There is no fracture, compression deformity, or suspicious bone lesion. Moderate disc degeneration present T12-L1 and L1-L2, with disc vacuum phenomenon and mild disc osteophytic spurs. There is otherwise mild disc degeneration spanning L2-S1. There is a 2 mm degenerative appearing retrolisthesis of L1 on L2, and L2 on L3. There is a trace degenerative anterolisthesis L4 on L5. Alignment otherwise anatomic. Normal facet alignment. There are sclerotic degenerative facet changes mainly spanning L3-S1. Soft tissues demonstrate vascular calcifications. XR/XR lumbar spine 2-3V IMPRESSION: 1. No acute bony abnormalities. 2. Moderate degenerative spondylosis of the lumbar spine as described. Electronically signed by: Frank Davis MD 05/07/2024 08:15 AM EDT RP I reviewed records from the following: Primary care Assessment & Plan Assessment & Plan (1) Thoracic back pain: Code(s): M54.6 - Pain in thoracic spine Category: Medical Qualifiers: Chronicity: chronic Back pain laterality: midline Qualified Code(s): M54.6 - Pain in thoracic spine; G89.29 - Other chronic pain Plan Chronic midline thoracic pain, associated with chronic recurrent cuff. He denies any pain for the last few days since his congestion has improved. History of lumbar disc herniation perhaps, had injections 20 years ago. Differentials would include vertebral compression fracture thoracic although patient denies any injuries or osteoporosis. Lower suspicion actually. But we can repeat thoracic and lumbar x-rays today to make sure. Suspect pain is really connected to cough and congestion. Rather than being the primary reason. Encouraged patient to start physical therapy. PT referral placed. Assessment and plan discussed with patient, and patient was agreeable. All questions were answered thoroughly. Follow up 4-6 weeks, or if pain returns. Ariadna Paris MD, ISACC Board Certified, [place] Board of Physical Medicine and Rehabilitation (ABPMR) Board Certified, [place] Board of Electrodiagnostic Medicine (ABEM) Orders: Orders XR lumbar spine 2-3V Today M54.6 - Pain in thoracic spine, M54.9 - Dorsalgia, unspecified XR thoracic spine 3V Today M54.6 - Pain in thoracic spine PT Evaluation and Treatment Today M54.6 - Pain in thoracic spine Coding Level of Care Code New Pt Level 4 (47943) Diagnoses Chronic midline thoracic back pain M54.6; G89.29 Chronicity: chronic Back pain laterality: midline
== END 2024-09-19 11:20 | disposition home or self-care (01) ==
LOC: HO.HOS 10:25
PROVIDERS: PCP Family Medicine; Visit Provider Physical Medicine & Rehabilitation
DX: M54.6 Pain in thoracic spine (principal); G89.29 Other chronic pain
CPT/HCPCS: 99204

== ENCOUNTER 2024-09-19 11:02 | Outpatient (REF) | payer MEDICARE, OTHER, SELFPAY ==
--- NOTE | ~2024-09-19 | XR_ITS ---
EXAMINATION: XR THORACIC SPINE CLINICAL INFORMATION: M54.6 - Pain in thoracic spine COMPARISON: May 03, 2024. TECHNIQUE: AP and lateral views FINDINGS: Mild endplate sclerosis and small marginal osteophyte formation at multiple levels. No acute cortical disruption or gross malalignment. Osteopenia versus osteoporosis. No lytic or blastic lesions. Sternal wires. XR/XR thoracic spine 3V IMPRESSION: Multilevel spondylosis. Osteopenia versus osteoporosis. No acute compression fracture deformity. Electronically signed by: Chandana Li MD 09/19/2024 11:22 AM EDT
--- NOTE | ~2024-09-19 | XR_ITS ---
EXAMINATION: XR LUMBOSACRAL SPINE CLINICAL INFORMATION: M54.9 - Dorsalgia, unspecified COMPARISON: May 03, 2024. TECHNIQUE: AP and lateral views. FINDINGS: Multilevel endplate sclerosis. Small marginal osteophyte formation Grade 1 anterolisthesis L4-5. Grade 1 retrolisthesis L1-2 and L2-3 levels. Old wedge-shaped compression deformity representing 20% volume loss at T12. No lytic or blastic lesions. No acute cortical disruption. Vascular calcifications, aorta. XR/XR lumbar spine 2-3V IMPRESSION: Multilevel thoracolumbar spondylosis resulting in grade 1 retrolisthesis L1-2 and L2-3 levels and grade 1 anterolisthesis L4-5. Atherosclerosis disease. Electronically signed by: Chandana Li MD 09/19/2024 11:21 AM EDT
== END 2024-09-19 11:03 | disposition home or self-care (01) ==
LOC: HO.HOSX 11:02
PROVIDERS: Visit Provider Physical Medicine & Rehabilitation
DX: Z00.00 Encounter for general adult medical examination without abnormal findings (principal); M54.6 Pain in thoracic spine; I10 Essential (primary) hypertension
CPT/HCPCS: 72072; 72100

== ENCOUNTER → 2024-09-19 11:08 | Outpatient (BNV) | payer MEDICARE, MEDICAID, SELFPAY | PROVIDERS: Visit Provider Radiology Diagnostic Radiology | DX: M43.16 Spondylolisthesis, lumbar region (principal); M51.360 Other intervertebral disc degeneration, lumbar region with discogenic back pain only | CPT/HCPCS: 72072; 72100 ==

== ENCOUNTER 2024-10-31 14:19 | Outpatient (AMB) | payer MEDICARE, MEDICAID, SELFPAY ==
[2024-10-31 14:26] VITALS: BP 120/62; PULSE 80; BMI 30.2
--- NOTE | 2024-10-31 14:26 | MHC.OFFVIS ---
Vital Signs 10/31/24 14:26 Height 5 ft 8 in Weight 198 lb 6.656 oz BMI 30.2 BP 120/62 Blood Pressure Location Lt brachial Position Sitting Pulse 80 Pulse Source Monitor Intake Visit Reasons: 2 year fu Allergies No Known Allergies Allergy (Verified 09/19/24 10:41) Medication List - Last Reconciled 10/31/24 by Tj Pierce MD amlodipine 10 mg PO DAILY aspirin 81 mg PO DAILY atorvastatin 80 mg PO DAILY 90 days blood pressure monitor Automatic, Digital. Dx: I10. Daily As directed, 999 days/lifetime blood sugar diagnostic (FreeStyle Lite Strips) As directed check bloodsugar once daily blood sugar diagnostic (FreeStyle Lite Strips) DX: E11.9, test blood sugar ONCE DAILY, 90 days blood-glucose meter (FreeStyle [place] Lite kit) As directed blood-glucose meter (FreeStyle Lite Meter kit) DX: E11.9, test blood sugar 2 times a day, duration 999 days blood-glucose sensor (FreeStyle [place] 3 Sensor device) To test blood sugar for 14 days, As directed, 84 days glipizide ER 5 mg PO DAILY 30 days glucose 4 grams PO Q15M PRN 30 days lancets (FreeStyle Lancets) As directed lancets (FreeStyle Lancets) USE 1 TO CHECK GLUCOSE ONCE DAILY, 90 days levothyroxine 50 mcg PO DAILY losartan-hydrochlorothiazide 100-25 mg 1 tab PO DAILY 90 days metformin 500 mg PO BID 90 days ropinirole 1 mg PO BID 90 days sildenafil 50 mg PO DAILY PRN 30 days tamsulosin 0.4 mg PO DAILY 90 days trazodone 100 mg PO BEDTIME PRN HPI Comments Details: Melecio returns for follow-up. I have not seen him in 4 years. From history, coronary artery bypass surgery around the age of 40. There is more than 20 years ago. It seems that he has been actually doing quite well with no issues whatsoever. He has no angina or shortness of breath or any other cardiac symptoms. 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 Otherwise, he states he feels well. He has smoked in the past but not recently. Other risk factors including diabetes, hypertension, dyslipidemia. [facility] Medical History (Updated 10/31/24 @ 09:57 by NIKI Richardson) Anxiety Adult general medical exam Cough Mid back pain Back Pain Dupuytren's contracture of right hand Dupuytren's contracture of left hand Screening for prostate cancer Screening for colon cancer Conjunctivitis, left eye Viral upper respiratory illness Postnasal drip Postnasal drip Diabetes type 2, controlled Abnormal EKG Atherosclerotic cardiovascular disease Hyperlipidemia Essential hypertension Surgical History (Updated 10/31/24 @ 10:01 by NIKI Richardson) H/O colonoscopy Status post aorto-coronary artery bypass graft History of coronary artery bypass graft History of coronary artery bypass graft (~2001) History of cholecystectomy Family History Father Heart disease Mother Pacemaker Other Substance use disorder Social History (Updated 07/11/23 @ 15:50 by Marisol Mohr) Housing: House Alcohol intake: current Alcohol intake frequency: holidays/special occasions only Patient Tobacco Use Status: Former Tobacco user e-Cigarette/Vaping Use: Never Used Second Hand Smoke Exposure: No service: Yes Current occupational status: employed 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 Current occupational exposures/hazards: No Cognitive needs: No Hearing needs: Yes (Hearing Aide) Vision needs: Yes (Glasses) Review of Systems Const Denies weakness ENT Denies dizziness Card Denies chest pain, Denies chest pain with activity, Denies syncope, Denies rapid heart rate, Denies pedal edema, Denies edema, Denies leg edema, Denies lightheadedness, Denies palpitations, Denies dyspnea, Denies dyspnea on exertion and Denies orthopnea Resp Denies cough, Denies dyspnea and Denies dyspnea on exertion GI Denies hematochezia and Denies change in stool character Musc Denies abnormal gait, Denies muscle cramps, Denies muscle weakness, Denies numbness, Denies radiating pain into limb and Denies tingling Neuro Denies abnormal gait, Denies dizziness, Denies syncope, Denies numbness, Denies tingling and Denies weakness Endo Denies palpitations Physical Exam Vital Signs: Last Vital Signs Pulse 80 10/31/24 14:26 BP 120/62 10/31/24 14:26 BMI result Body Mass Index 30.2 Const General: comfortable and no acute distress Orientation/consciousness: patient oriented x3 HEENT Other: Unremarkable Head: Yes normal to inspection Neck Neck: Yes normal visual inspection Chest Chest palpation & inspection: normal inspection of the chest Resp Auscultation: clear to auscultation bilaterally Cardio Palpation: normal PMI Heart sounds: S1 normal heart sound present, S2 normal heart sound present, no gallops, no murmurs and no rubs GI Palpation (GI): Soft to palpation Back/Spine/Pelvis Other: unremarkable Skin General skin exam: no rashes or lesions noted Neuro General: patient oriented x3 Extrem General: Yes normal to inspection Psych Mental Status: mental status grossly normal Office Procedures EKG Details: EKG with sinus rhythm, right bundle-branch block at 80/Min. Similar to previous EKG from 2022. [id number], Complete Assessment & Plan Assessment & Plan (1) Atherosclerotic cardiovascular disease: Code(s): I25.10 - Atherosclerotic heart disease of [place] coronary artery without angina pectoris Category: Medical (2) Status post aorto-coronary artery bypass graft: Code(s): Z95.1 - Presence of aortocoronary bypass graft Category: Surgical (3) Right bundle branch block: Code(s): I45.10 - Unspecified right bundle-branch block Category: Medical (4) Hyperlipidemia: Code(s): E78.5 - Hyperlipidemia, unspecified Category: Medical Qualifiers: Hyperlipidemia type: unspecified Qualified Code(s): E78.5 - Hyperlipidemia, unspecified (5) Essential hypertension: Code(s): I10 - Essential (primary) hypertension Category: Medical Plan Cardiac studies reviewed. Echocardiogram from 2020 with LVEF of 60-65%. No significant valvular findings. Myocardial perfusion imaging study from 2020 showed normal perfusion. In the exercise portion, he was able to do 7.7 METS. In the repeat stress test from 2022, he reached 9.4 METS on James protocol. Had a hypertensive blood pressure response. No angina. Overall, stable coronary artery disease, remote coronary bypass, chronic right bundle-branch block. He can remain on the current medical regimen. LDL is 96 mg/dL and he is on high-dose statins. Advised dietary measures to bring that down. If not, consider Zetia. Optimal management of diabetes and high blood pressure. Today's blood pressure is normal. Follow up in one year. In the interim, he will call with concerns. Medications: Changed From trazodone 100 mg PO BEDTIME 30 days 30 tabs 0RF To trazodone 100 mg PO BEDTIME PRN Coding Level of Care Code Est Pt Level 4 (17612) Complex EM visit Add On G2211 Diagnoses Atherosclerotic cardiovascular disease I25.10 Status post aorto-coronary artery bypass graft Z95.1 Right bundle branch block I45.10 Hyperlipidemia, unspecified hyperlipidemia type E78.5 Hyperlipidemia type: unspecified Essential hypertension I10 CPT Codes EKG - CPT: 71799-[id number], Complete ([id number])
--- OUTSIDE RECORDS SUMMARY | 2024-10-31 15:40 | XMS_ITS | Patient Health Record ---
Author Organization [facility] Address [address] [place] [address] Care Team Providers Care Analysis Or Research Safety Inspector Name Role Phone Saul Horton Primary Care Provider Unavailab Devon Pyle Jr Unavailable [phone] Reason For Referral No Information Medications Medication [...] Problem Status W/U Status Risk Notes Problem [id number] Colon cancer screening (Z12.11) Active confirmed Problem [id number] Abdominal bloating (R14.0) Active confirmed Plan Of Treatment Future Test Test Name Order Date COLONOSCOPY 03/01/2017 Insurance Providers Payer Name Payer Address Payer Phone Subscriber Number Group Number Insured Name Patient Relationship to Insured Coverage Start Date Coverage End Date HEALTH PLANS [address] [place] MCFADDEN, [place] [id number] ALICIA SOLIS Self - patient is the insured Medical (General) History Medical History History ICD Code coronary artery disease hearing loss diabetes mellitus type 2 anger management elevated cholesterol enlarged prostate hypothyroidism Surgical History Surgery Date(Month/Year) cholecystectomy bypass grafting eye surgery
== END 2024-10-31 14:53 | disposition home or self-care (01) ==
LOC: HO.HCS 14:20
PROVIDERS: PCP Family Medicine; Visit Provider Internal Medicine
DX: I25.10 Atherosclerotic heart disease of native coronary artery without angina pectoris (principal); Z95.1 Presence of aortocoronary bypass graft; I45.10 Unspecified right bundle-branch block; E78.5 Hyperlipidemia, unspecified; I10 Essential (primary) hypertension
CPT/HCPCS: 93010; 99214; G2211

== ENCOUNTER → 2024-10-31 14:19 | Outpatient (BNVA) | payer MEDICARE, OTHER, SELFPAY | PROVIDERS: PCP Family Medicine; Visit Provider Internal Medicine | DX: I25.10 Atherosclerotic heart disease of native coronary artery without angina pectoris (principal); Z95.1 Presence of aortocoronary bypass graft; I45.10 Unspecified right bundle-branch block; E78.5 Hyperlipidemia, unspecified; I10 Essential (primary) hypertension | CPT/HCPCS: 93005; 99212 ==

== ENCOUNTER 2024-11-05 15:26 | Outpatient (AMB) | payer MEDICARE, MEDICAID, SELFPAY ==
[2024-11-05 15:28] VITALS: BP 138/68; PULSE 77; BMI 31.6
--- NOTE | 2024-11-05 15:28 | A.OFFVIS_ITS ---
Vital Signs 11/05/24 15:28 Height 5 ft 8 in Weight 207 lb 10.807 oz BMI 31.6 BP 138/68 Blood Pressure Location Rt brachial Position Sitting Pulse 77 Intake Visit Reasons: Colonoscopy Screening Intake Note: New patient in office today for colonoscopy screening. CC: Patient c/o constipation and having BMs probably every 2 days. He states that when he has to push hard he sometimes see blood on the toilet paper when he wipes. He c/o mid back pain when coughing for about 2 years but nobody can't figure out why. 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 He is referred by Saul Horton. PMX Allergic rhinitis Hypertension High cholesterol Right bundle branch block Diabetes Coronary artery disease Erectile dysfunction Memory problems Depression with anxiety Skin cancer Back neck hand and foot pain Insomnia * SURGICAL HISTORY CABG Cholecystectomy Colonoscopy 2010= 2 TA is and hyperplastic polyps, 2018= 1 TA and hyperplastic polyps-Aydin * ALLERGIES: NKDA * [facility] LABS: Laboratory Tests 09/19/24 10:08 Estimated GFR > 60 Total Bilirubin 0.8 AST 36 ALT 57 H Alkaline Phosphatase 75 TSH 2.25 TODAY'S VISIT HE HAD TUBULAR ADENOMAS ON PAST COLONOSCOPIES WITH DOCTORS AYDIN/JOSE JUAN. Bowel or upper GI problems: CIC he wants to treat with fiber, at time rectal smearing. No upper GI problems. There are no prior problems with anesthesia or sedation. His cardiac conditions are well controlled and he denies any respiratory problems. There are no infectious disease problems. His mother had colon polyps, no known CRC to him. [facility] Medical History Anxiety Adult general medical exam Cough Mid back pain Back Pain Dupuytren's contracture of right hand Dupuytren's contracture of left hand Screening for prostate cancer Screening for colon cancer Conjunctivitis, left eye Viral upper respiratory illness Postnasal drip Postnasal drip Diabetes type 2, controlled Abnormal EKG Atherosclerotic cardiovascular disease Hyperlipidemia Essential hypertension Surgical History H/O colonoscopy Status post aorto-coronary artery bypass graft History of coronary artery bypass graft History of coronary artery bypass graft (~2001) History of cholecystectomy Family History Father Heart disease Mother Pacemaker Other Substance use disorder Social History Housing: House Alcohol intake: current Alcohol intake frequency: holidays/special occasions only Patient Tobacco Use Status: Former Tobacco user e-Cigarette/Vaping Use: Never Used Second Hand Smoke Exposure: No service: Yes Current occupational status: employed 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 Current occupational exposures/hazards: No Cognitive needs: No Hearing needs: Yes (Hearing Aide) Vision needs: Yes (Glasses) Review of Systems Const Denies fatigue, Denies fever(s), Denies night sweats, Denies poor appetite and Denies weight loss Eyes Details: glasses Reports requires corrective lenses ENT Reports Normal hearing present, Denies dental pain, Denies dysphagia, Denies hearing loss, Denies mouth pain, Denies odynophagia, Denies throat swelling, Denies tongue swelling and Reports other (Dentition adequate) Card Reports no additional complaints Resp Reports no additional complaints GI Details: Denies abdominal pain, Denies melena, Denies bloating, Denies hematochezia, Reports constipation, Denies GI cramping, Denies dysphagia, Denies excessive flatus, Denies early satiety, Denies heartburn, Denies diarrhea, Denies nausea, Denies odynophagia, Denies vomiting and Denies hematemesis Skin/Breast Denies pruritus, Denies lesions, Denies rash and Denies jaundice Neuro Reports Normal hearing present and Denies Abnormal speech present Endo Denies fatigue Aller/Immun Denies throat swelling and Denies tongue swelling Physical Exam Vital Signs: Last Vital Signs Pulse 77 11/05/24 15:28 BP 138/68 11/05/24 15:28 BMI result Body Mass Index 31.6 Const General: cooperative, no acute distress, well developed and well groomed Nutritional Appearance: well nourished and obese centrally obese Orientation/consciousness: oriented to person, oriented to place and oriented to time Limitations: No language barrier HEENT Head: Yes normocephalic and Yes atraumatic Ears: hearing grossly impaired bilaterally Eyes General: appearance normal, both eyes and all related structures Pupils: Equal, round and reactive pupils present Neck Neck: Yes normal visual inspection and Yes no lymphadenopathy Thyroid: Thyroid normal Resp Effort & Inspection: normal respiratory effort and able to speak in complete sentences Auscultation: clear to auscultation bilaterally Cardio Rate: regular rate Rhythm: regular rhythm Heart sounds: Normal, physiologic split S2 sound present Peripheral pulses: radial pulses present and posterior tibial pulses present GI Inspection: No distended, Yes Abdominal panniculus present and Yes obesity Palpation (GI): Soft to palpation, nontender, no guarding, not rigid and No hepatosplenomegaly present Percussion: Yes normal to percussion Auscultation: normal bowel sounds Rectal Exam - Male: Yes deferred Skin General skin exam: no rashes or lesions noted, turgor normal, skin not dry, no jaundice, No spider nevi and no striae Rashes: no rashes Nails: normal Neuro General: oriented to person, oriented to place and oriented to time Cranial nerves: Yes Equal, round and reactive pupils present and Yes Normal hearing present Speech: No Abnormal speech present Extrem General: Yes normal to inspection, No clubbing, No cyanosis and No edema Psych Appearance: grossly normal and well kempt Mental Status: mental status grossly normal Speech and movement: Normal speech and movement present Affect: normal affect Attitude: cooperative Thought process: Normal thought process present and not confabulating Thought content: Normal thought content present Insight: Good insight present (Psych) Judgement: Good judgement present (Psych) Results Reviewed Results Reviewed: Laboratory Tests 09/19/24 10:08 Estimated GFR > 60 Total Bilirubin 0.8 AST 36 ALT 57 H Alkaline Phosphatase 75 TSH 2.25 Assessment & Plan Assessment & Plan (1) Tubular adenoma of colon: Comment: 2010= 2 TA is and hyperplastic polyps, 2018= 1 TA and hyperplastic polyps- Aydin Code(s): D12.6 - Benign neoplasm of colon, unspecified Category: Medical Plan HE HAD TUBULAR ADENOMAS ON PAST COLONOSCOPIES WITH DOCTORS AYDIN/JOSE JUAN. Bowel or upper GI problems: CIC he wants to treat with fiber, at time rectal smearing. No upper GI problems. There are no prior problems with anesthesia or sedation. His cardiac conditions are well controlled and he denies any respiratory problems. There are no infectious disease problems. His mother had colon polyps, no known CRC to him. Although this is not in his chart it would appear that the gentleman is significantly hard of hearing. Orders: Referrals GI Procedure Notification D12.6 - Benign neoplasm of colon, unspecified Medications: New peg 3350-electrolytes 236-22.74-6.74 -5.86 gram (Golytely) until fecal effluent is clear; do not exceed a total volume of 2,000 mL 240 mL PO Q10M 4,000 mL 0RF 1 day Z12.11 - Encounter for screening for malignant neoplasm of colon bisacodyl (Dulcolax (bisacodyl)) 10 mg (2 x 5 mg) PO BEDTIME 4 tabs 0RF 2 days Coding Level of Care Code New Pt Level 3 (00254) Diagnoses Tubular adenoma of colon D12.6
--- OUTSIDE RECORDS SUMMARY | 2024-11-05 17:39 | XMS_ITS | Patient Health Record ---
Author Organization [facility] Address [address] [place] [address] Care Team Providers Care Hand Driller Name Role Phone Saul Horton Primary Care [...] Problem Status W/U Status Risk Notes Problem [id number] Colon cancer screening (Z12.11) Active confirmed Problem [id number] Abdominal bloating (R14.0) Active confirmed Plan Of Treatment Future Test Test Name Order Date COLONOSCOPY 03/01/2017 Insurance Providers Payer Name Payer Address Payer Phone Subscriber Number Group Number Insured Name Patient Relationship to Insured Coverage Start Date Coverage End Date HEALTH PLANS [address] [place], [place] [id number] ALICIA SOLIS Self - patient is the insured Medical (General) History Medical History History ICD Code coronary artery disease hearing loss diabetes mellitus type 2 anger management elevated cholesterol enlarged prostate hypothyroidism Surgical History Surgery Date(Month/Year) cholecystectomy bypass grafting eye surgery
== END 2024-11-05 16:39 | disposition home or self-care (01) ==
LOC: HO.HGI 15:26
PROVIDERS: PCP Family Medicine; Visit Provider Nurse Practitioner
DX: D12.6 Benign neoplasm of colon, unspecified (principal)
CPT/HCPCS: 99203

== ENCOUNTER → 2024-11-05 15:26 | Outpatient (BNVA) | payer MEDICARE, MEDICAID, SELFPAY | PROVIDERS: PCP Family Medicine; Visit Provider Nurse Practitioner | DX: D12.6 Benign neoplasm of colon, unspecified (principal); K59.00 Constipation, unspecified | CPT/HCPCS: 99202 ==

== ENCOUNTER 2024-11-22 16:30 | Outpatient (AMB) | payer MEDICARE, MEDICAID, SELFPAY ==
--- NOTE | 2024-11-22 16:31 | MHC.PC.OV ---
Vital Signs 11/22/24 16:35 Height 5 ft 8 in Weight 209 lb BMI 31.8 BP 132/70 Blood Pressure Location Lt brachial Position Sitting Respiration 12 Pulse 66 Pulse Source Pulse Oximeter Temp 97.2 F Temp Source Oral Pulse Oximetry (%) 94 Oxygen Delivery Method Room Air Intake Visit Reasons: f/u diabetes, HTN Intake Note: Follow up on htn and dm. Campaign Worker Required: No Allergies No Known Allergies Allergy (Verified 11/22/24 16:32) Medication List - Last Reconciled 11/22/24 by Saul Horton MD amlodipine 10 mg PO DAILY aspirin 81 mg PO DAILY atorvastatin 80 mg PO DAILY 90 days bisacodyl (Dulcolax (bisacodyl)) 10 mg (2 x 5 mg) PO BEDTIME 2 days blood pressure monitor Automatic, Digital. Dx: I10. Daily As directed, 999 days/lifetime blood sugar diagnostic (FreeStyle Lite Strips) As directed check bloodsugar once daily blood sugar diagnostic (FreeStyle Lite Strips) DX: E11.9, test blood sugar ONCE DAILY, 90 days blood-glucose meter (FreeStyle [place] Lite kit) As directed blood-glucose meter (FreeStyle Lite Meter kit) DX: E11.9, test blood sugar 2 times a day, duration 999 days blood-glucose sensor (FreeStyle [place] 3 Sensor device) To test blood sugar for 14 days, As directed, 84 days glipizide ER 5 mg PO DAILY 30 days glucose 4 grams PO Q15M PRN 30 days hydrocortisone 2.5% topical BID lancets (FreeStyle Lancets) As directed lancets (FreeStyle Lancets) USE 1 TO CHECK GLUCOSE ONCE DAILY, 90 days levothyroxine 50 mcg PO DAILY losartan-hydrochlorothiazide 100-25 mg 1 tab PO DAILY 90 days metformin 500 mg PO BID 90 days omeprazole 20 mg PO DAILY peg 3350-electrolytes 236-22.74-6.74 -5.86 gram (Golytely) 240 mL PO Q10M 1 day ropinirole 1 mg PO BID 90 days sildenafil 50 mg PO DAILY PRN 30 days sitagliptin phosphate (Januvia) 100 mg PO DAILY sodium chloride 0.65% (Saline Mist) 1 spray intranasal BID PRN tamsulosin 0.4 mg PO DAILY 90 days trazodone 100 mg PO BEDTIME PRN Tobacco use date assessed: 11/22/24 Last assessed Fall Risk: 11/22/24 Dental Screening Dental Screen Date: 11/22/24 Did you have a dental visit in the last 12 months?: Yes Did you have a dental problem in the last 6 months where you did not have access to dental care?: No Was dental information given to patient?: Patient has dentist HPI f/u diabetes, HTN HPI Details 64 y/o male presents to f/u diabetes, HTN. A1c today 11/22/24 6.3%. He is on metformin 500mg b.i.d, Januvia 100mg, glipizide 5mg daily. BP today 132/70, 66p. He is on losartan-HCTZ 100-25mg, amlodipine 10mg daily. Complaints of a mild dry cough. HPI Comments History of Present Illness Details Documentation assistance for Saul Horton MD, was provided by Sanchez Mckeon,? Senior Payroll Specialist on 11/22/2024 at 4:57 PM EST. I, Dr. Horton, have read, observed, and verified documentation. ?? COUNT INCLUDES THE [facility] Medical History (Updated 11/22/24 @ 17:12 by Sanchez Mckeon) Cough Anxiety Adult general medical exam Mid back pain Back Pain Dupuytren's contracture of right hand Dupuytren's contracture of left hand Screening for prostate cancer Screening for colon cancer Conjunctivitis, left eye Viral upper respiratory illness Postnasal drip Postnasal drip Diabetes type 2, controlled Abnormal EKG Atherosclerotic cardiovascular disease Hyperlipidemia Essential hypertension Surgical History H/O colonoscopy Status post aorto-coronary artery bypass graft History of coronary artery bypass graft History of coronary artery bypass graft (~2001) History of cholecystectomy Family History Father Heart disease Mother Pacemaker Other Substance use disorder Social History Housing: House Alcohol intake: current Alcohol intake frequency: holidays/special occasions only Patient Tobacco Use Status: Former Tobacco user e-Cigarette/Vaping Use: Never Used Second Hand Smoke Exposure: No service: Yes Current occupational status: employed 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 1. Little interest or pleasure in doing things: not at all 2. Feeling down, depressed, or hopeless: not at all 3. Trouble falling or staying asleep, or sleeping too much: not at all 4. Feeling tired or having little energy: not at all 5. Poor appetite or overeating: not at all 6. Feeling bad about yourself - or that you are a failure or have let yourself or your family down: not at all 7. Trouble concentrating on things, such as reading the newspaper or watching television: not at all 8. Moving or speaking so slowly that other people could have noticed. Or the opposite - being so fidgety or restless that you have been moving around a lot more than usual: not at all 9. Thoughts that you would be better off or of hurting yourself in some way: not at all Total score: 0 Depression Screening Interpretation: Negative Depression Screening Done: Yes 56802 - PHQ-9 Billing: Yes Source: Developed by Drs. Melecio Leiva, Ingrid Rivera, Abelino Sosa and colleagues, with an educational jacqueline from [employer]. Thrive Questionnaire Date Thrive assessed: 11/22/24 I am a: Patient What is your living situation today?: I have a place to live, but I am worried about losing it in the future Within the past 12 months, did the food you bought not last and you didn't have the money to get more?: Never true Within the past 12 months, did you worry whether your food would run out before you got money to buy more?: Never true Do you have trouble paying for medicines?: No Do you have trouble getting transportation to medical appointments?: No Do you have trouble paying your heating and electricity bill?: Yes Do you have trouble taking care of your child, family member or friend?: No Do you have trouble with day-to-day activities such as bathing, preparing meals, shopping, managing finances, etc.?: No Are you currently unemployed and looking for a job?: No Are you interested in more education?: No Please select the resources that you would like help with: None Currently or been in a relationship where the following occur: No concerns reported THRIVE Score: 2 RODNEY-7 AMB Questionnaire RODNEY-7 Date RODNEY - 7 assessed: 11/22/24 Feeling nervous, anxious, or on edge: 0 = Not at all Not being able to stop or control worryin = Not at all Worrying too much about different things: 0 = Not at all Trouble relaxin = Not at all Being so restless that it is hard to sit still: 0 = Not at all Becoming easily annoyed or irritable: 0 = Not at all Feeling afraid as if something awful might happen: 0 = Not at all Total RODNEY-7 score (0-4 normal; 5-9 mild; 10-14 moderate; 15-21 severe): 0 Source: Developed by Drs. Melecio Leiva, Ingrid Rivera, Abelino Sosa and colleagues, with an educational jacqueline from [employer]. RODNEY-7 Assessment Billing RODNEY-7 Assessment Tool: RODNEY-7 Assessment 76822 Review of Systems Const Denies chills, Denies fatigue, Denies fever(s), Denies headache(s) and Denies weakness ENT Denies dizziness and Denies headache(s) Card Denies dyspnea Resp Reports cough, Denies dyspnea, Denies wheezing and Denies other (shortness of breath) Musc Denies numbness and Denies tingling Neuro Denies dizziness, Denies headache(s), Denies numbness, Denies tingling and Denies weakness Psych Denies anxiety and Denies depression Endo Denies fatigue Aller/Immun Denies wheezing Physical exam (Primary Care) Vital Signs: Last Vital Signs Temp 97.2 F 11/22/24 16:35 Pulse 66 11/22/24 16:35 Resp 12 11/22/24 16:35 BP 132/70 11/22/24 16:35 Pulse Ox 94 11/22/24 16:35 Oxygen Delivery Method Room Air 11/22/24 16:35 BMI result Body Mass Index 31.8 Tobacco/Smoking Status: Tobacco use Status Tobacco use date assessed 11/22/24 11/22/24 16:37 Patient Tobacco Use Status Former Tobacco user 11/22/24 16:37 e-Cigarette/Vaping Use Never Used 11/22/24 16:37 PHQ-9: PHQ-9 Score PHQ-9: Total score 0 11/22/24 16:56 Depression Screening Interpretation: Negative Thrive Assessment: Date of Thrive Assessment Date Thrive assessed 11/22/24 11/22/24 16:37 Currently or been in a relationship where the following occur: No concerns reported Const General: well developed; No acute distress Nutritional Appearance: well nourished Orientation/consciousness: patient oriented x3 HENMT Head: Yes normocephalic and Yes atraumatic Eyes General: appearance normal, both eyes and all related structures Pupils: Equal, round and reactive pupils present EOM: EOMs intact bilaterally Resp Effort & Inspection: normal respiratory effort Neuro General: patient oriented x3 and gait normal Cranial nerves: Yes Equal, round and reactive pupils present Psych Affect: normal affect Results AMB Hemoglobin A1c AMB Hemoglobin A1c 6.3 % Last Edit by Rashaun Boyle MA on 11/22/24 16:48 Results Reviewed Results Reviewed: Laboratory Last Values Hgb A1c (Clinic) 6.3 % (4.0-6.0) H 11/22/24 16:39 Coding Level of Care Code Est Pt Level 4 (55893) Diagnoses Type 2 diabetes mellitus with unspecified complications E11.8 Essential hypertension I10 Coronary artery disease I25.10 Cough R05.9 Screening for osteoporosis Z13.820 Osteoporosis M81.0 Additional Codes RODNEY-7 Assessment Billing - RODNEY-7 Assessment Tool: RODNEY-7 Assessment [id number] ([id number]) PHQ-9 - 12371 - PHQ-9 Billing: Yes ([id number]) Assessment & Plan Assessment & Plan (1) Type 2 diabetes mellitus with unspecified complications: Code(s): E11.8 - Type 2 diabetes mellitus with unspecified complications Category: Medical Plan: A1c 6.3%. Good control. Goal is less than 7.0% Continue current medications Continue diet low in sugars and starches. Continue exercise (2) Essential hypertension: Code(s): I10 - Essential (primary) hypertension Category: Medical Plan: Blood pressure is fairly well controlled. Goal is less than 130/80 Continue current medications Watch salt/sodium (3) Coronary artery disease: Code(s): I25.10 - Atherosclerotic heart disease of [place] coronary artery without angina pectoris Category: Medical Plan: Stable (4) Cough: Code(s): R05.9 - Cough, unspecified Category: Medical Plan: Mild dry cough He has used benzonatate in the past which helped. Will give him another script for this Lungs are clear (5) Screening for osteoporosis: Code(s): Z13.820 - Encounter for screening for osteoporosis Category: Medical Plan: Recent thoracic spine x-ray shows osteopenia/osteoporosis Check bone density test (6) Osteoporosis: Code(s): M81.0 - Age-related osteoporosis without current pathological fracture Category: Medical Plan: As above Orders: Orders AMB Hemoglobin A1c Today E11.8 - Type 2 diabetes mellitus with unspecified complications XR DEXA axial skeleton Today M81.0 - Age-related osteoporosis without current pathological fracture Medications: New benzonatate 100 mg PO BID PRN 60 caps 0RF cough 30 days
--- OUTSIDE RECORDS SUMMARY | 2024-11-22 16:32 | XMS_ITS | Patient Health Record ---
Author Organization [facility] Address [address] [place] [address] Care Team Providers Care Stripping Shovel Oiler Name Role Phone Saul Horton Primary Care [...] Problem Status W/U Status Risk Notes Problem [id number] Colon cancer screening (Z12.11) Active confirmed Problem [id number] Abdominal bloating (R14.0) Active confirmed Plan Of Treatment Future Test Test Name Order Date COLONOSCOPY 03/01/2017 Insurance Providers Payer Name Payer Address Payer Phone Subscriber Number Group Number Insured Name Patient Relationship to Insured Coverage Start Date Coverage End Date HEALTH PLANS [address] [place], [place] [id number] ALICIA SOLIS Self - patient is the insured Medical (General) History Medical History History ICD Code coronary artery disease hearing loss diabetes mellitus type 2 anger management elevated cholesterol enlarged prostate hypothyroidism Surgical History Surgery Date(Month/Year) cholecystectomy bypass grafting eye surgery
[2024-11-22 16:35] VITALS: BP 132/70; PULSE 66; RESP 12; TEMP 36.2; O2SAT 94; BMI 31.8
== END 2024-11-22 17:11 | disposition home or self-care (01) ==
LOC: HO.HMCFM 16:31
PROVIDERS: PCP Family Medicine; Visit Provider Family Medicine
DX: E11.8 Type 2 diabetes mellitus with unspecified complications (principal); I10 Essential (primary) hypertension; I25.10 Atherosclerotic heart disease of native coronary artery without angina pectoris; R05.9 Cough, unspecified; Z13.820 Encounter for screening for osteoporosis; M81.0 Age-related osteoporosis without current pathological fracture

== ENCOUNTER → 2024-11-22 16:30 | Outpatient (BNVA) | payer MEDICARE, MEDICAID, SELFPAY | PROVIDERS: PCP Family Medicine; Visit Provider Family Medicine | DX: E11.8 Type 2 diabetes mellitus with unspecified complications (principal); I10 Essential (primary) hypertension; I25.10 Atherosclerotic heart disease of native coronary artery without angina pectoris; R05.9 Cough, unspecified; M81.0 Age-related osteoporosis without current pathological fracture; Z87.891 Personal history of nicotine dependence | CPT/HCPCS: 83036; 96127; 99212 ==

== ENCOUNTER 2025-01-09 14:43 | Outpatient (AMB) | payer MEDICARE, MEDICAID, SELFPAY ==
[2025-01-09 14:55] VITALS: BP 128/70; PULSE 58; O2SAT 97; BMI 31.7
--- NOTE | 2025-01-09 14:55 | MHC.OFFVIS ---
Vital Signs 01/09/25 14:55 Height 5 ft 8 in Weight 208 lb 6 oz BMI 31.7 BP 128/70 Blood Pressure Location Rt brachial Position Sitting Pulse 58 Pulse Source Pulse Oximeter Pulse Oximetry (%) 97 Oxygen Delivery Method Room Air Intake Visit Reasons: INP-Somnolence (CONF.) Intake Note: Patient presents SPECIAL CERTIFICATE DICTATOR somnolence. 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 In past was told snored/apnea/gasping. Goes to bed 9:30pm wakes up 3-4am. Wakes up 3-4times a night. Naps 15-20min. No headaches. Last sleep study was 10-15years ago. Never had CPAP. Accompanied by: Self / Same As Patient Allergies No Known Allergies Allergy (Verified 01/09/25 14:57) HPI Comments Details: 64 year old patient presents for an evaluation of sleep apnea. 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 He is chronically fatigue goes to bed 9pm and wakes up at 3:30am for work. He snores loudly, has witnessed apneas, is up 3x a night if he forgets to take tamsulosin. He naps daily for 20min during lunch time. He has acid reflux managed with omeprazole. He has restless legs with paresthesias, shakes his legs due to stiffness and discomfort radiating to the calves, he is managed on ropinirole 1mg po BID. He has wierd dreams and cant remember them. Denies parasomnias. Memory is poor, has brain fog, and stressed so he forgets to take his medications on time. Mood is anxious. Diet is stable. [facility] Medical History Cough Anxiety Adult general medical exam Mid back pain Back Pain Dupuytren's contracture of right hand Dupuytren's contracture of left hand Screening for prostate cancer Screening for colon cancer Conjunctivitis, left eye Viral upper respiratory illness Postnasal drip Postnasal drip Diabetes type 2, controlled Abnormal EKG Atherosclerotic cardiovascular disease Hyperlipidemia Essential hypertension Surgical History H/O colonoscopy Status post aorto-coronary artery bypass graft History of coronary artery bypass graft History of coronary artery bypass graft (~2001) History of cholecystectomy Family History Father Heart disease Mother Pacemaker Other Substance use disorder Social History Housing: House Alcohol intake: current Alcohol intake frequency: holidays/special occasions only Patient Tobacco Use Status: Former Tobacco user e-Cigarette/Vaping Use: Never Used Second Hand Smoke Exposure: No service: Yes Current occupational status: employed 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 Current occupational exposures/hazards: No Cognitive needs: No Hearing needs: Yes (Hearing Aide) Vision needs: Yes (Glasses) Physical Exam Vital Signs: Last Vital Signs Pulse 58 01/09/25 14:55 BP 128/70 01/09/25 14:55 Pulse Ox 97 01/09/25 14:55 Oxygen Delivery Method Room Air 01/09/25 14:55 BMI result Body Mass Index 31.7 Const General: cooperative, comfortable and no acute distress Nutritional Appearance: overweight Orientation/consciousness: patient oriented x3 Limitations: other limitations (bilateral hearing aids) HEENT Face and sinus: Yes face symmetric Eyes Pupils: Equal, round and reactive pupils present Neck Neck: Yes full ROM Resp Effort & Inspection: normal respiratory effort and able to speak in complete sentences Neuro Other: hearing aids bilateral gait is normal, good stride General: patient oriented x3 and moves all extremities Cranial nerves: Yes Equal, round and reactive pupils present, Yes Normal accommodation reflex present, Yes Normal facial strength present, Yes Midline tongue present, Yes Ability to bilaterally rotate head present and Yes Ability to bilaterally elevate shoulders present Gait exam (Neuro): Antalgic gait present Motor exam (neuro): Abnormal motor strength present and Abnormal muscle tone present Deep tendon reflexes (DTR's): Right triceps reflex intensity grade: 2+, Left triceps reflex intensity grade: 2+, Rt Biceps (C5, C6): 2+, Left biceps reflex intensity grade: 2+, Right brachioradialis reflex intensity grade: 2+, Left brachioradialis reflex intensity grade: 2+, Right patellar reflex intensity grade: 2+ and Left patellar reflex intensity grade: 2+ Coordination: [id number] test normal (overshoots) Psych Appearance: well kempt Speech and movement: Slurred speech present Attitude: cooperative Results Reviewed Results Reviewed: labs reviewed with pt. Assessment & Plan Assessment & Plan (1) Excessive daytime sleepiness: Code(s): G47.19 - Other hypersomnia Category: Medical (2) Chronic fatigue: Code(s): R53.82 - Chronic fatigue, unspecified Category: Medical (3) Loud snoring: Code(s): R06.83 - Snoring Category: Medical Plan HST to r/o [facility] Labs to reviewed with pt. F/U 3 months. Orders: Orders RT home sleep study Today G47.19 - Other hypersomnia Patient Instructions: Please complete the following fasting labs to rule out deficiencies. CBC/CMP/ B12/ Vit D/ TSH/ Homocysteine and MMA/ Ferritin. Coding Level of Care Code New Pt Level 4 (34313) Diagnoses Excessive daytime sleepiness G47.19 Chronic fatigue R53.82 Loud snoring R06.83 Sleep Questionnaire Difficulty falling asleep: Yes Difficulty staying asleep?: Yes Number of arousals: 3-4 Snoring: Yes Witnessed apneas: Yes Gasping arousals: No Nocturia: Yes GERD: Yes Vivid dreams: Yes Acting out dreams: No Abnormal behavior in sleep: No Abnormal movements in sleep: No Morning headaches: No Excessive daytime sleepiness: No Daytime naps: Yes Restless legs: Yes Hallucinations: No Sleep paralysis: No Drop attacks: No Sleep Study: Yes CPAP: No
--- OUTSIDE RECORDS SUMMARY | 2025-01-09 18:01 | XMS_ITS | Patient Health Record ---
Author Organization [facility] Address [address] [place] [address] Care Team Providers Care Mortgage Loan Counselor Name Role Phone Saul Horton Primary Care Provider Unavailab Devon Pyle Jr Unavailable [phone] Reason For Referral No Information Medications Medication [...] Status Risk Notes Problem Colon cancer screening ([id number]) Colon cancer screening (Z12.11) Active confirmed Problem Abdominal bloating (486311560) Abdominal bloating (R14.0) Active confirmed Plan Of Treatment Future Test Test Name Order Date COLONOSCOPY 03/01/2017 Insurance Providers Payer Name Payer Address Payer Phone Subscriber Number Group Number Insured Name Patient Relationship to Insured Coverage Start Date Coverage End Date HEALTH PLANS [address] [place] [address] [id number] ALICIA SOLIS Self - patient is the insured Medical (General) History Medical History History ICD Code coronary artery disease hearing loss diabetes mellitus type 2 anger management elevated cholesterol enlarged prostate hypothyroidism Surgical History Surgery Date(Month/Year) cholecystectomy bypass grafting eye surgery
== END 2025-01-09 16:01 | disposition home or self-care (01) ==
LOC: HO.HSMS 14:44
PROVIDERS: PCP Family Medicine; Visit Provider Physician Assistant Medical
DX: G47.19 Other hypersomnia (principal); R53.82 Chronic fatigue, unspecified; R06.83 Snoring
CPT/HCPCS: 99204

== ENCOUNTER → 2025-01-09 14:43 | Outpatient (BNVA) | payer MEDICARE, MEDICAID, SELFPAY | PROVIDERS: PCP Family Medicine; Visit Provider Physician Assistant Medical | DX: G47.19 Other hypersomnia (principal); R53.82 Chronic fatigue, unspecified; R06.83 Snoring | CPT/HCPCS: 99202 ==

== ENCOUNTER 2025-01-14 06:40 | Day surgery (SDC) | payer MEDICARE, MEDICAID, SELFPAY ==
--- OUTSIDE RECORDS SUMMARY | 2025-01-02 16:43 | XMS_ITS | Patient Health Record ---
Author Organization [facility] Address [address] [place] [address] Care Team Providers Care Cathode Ray Tube Assembler Name Role Phone Saul Horton Primary Care Provider Unavailab Devon Pyle Jr Unavailable [phone] Reason For Referral No Information Medications Medication [...] As direc santiago Orally Over the specified time.; Duration: 1 day(s) Active Diclofenac Sodium 75 MG [...] Problem Status W/U Status Risk Notes Problem Colon cancer screening ([id number]) Colon cancer screening (Z12.11) Active confirmed Problem Abdominal bloating (041274713) Abdominal bloating (R14.0) Active confirmed Plan Of Treatment Future Test Test Name Order Date COLONOSCOPY 03/01/2017 Insurance Providers Payer Name Payer Address Payer Phone Subscriber Number Group Number Insured Name Patient Relationship to Insured Coverage Start Date Coverage End Date HEALTH PLANS [address] [place] [address] [id number] ALICIA SOLIS Self - patient is the insured Medical (General) History Medical History History ICD Code coronary artery disease hearing loss diabetes mellitus type 2 anger management elevated cholesterol enlarged prostate hypothyroidism Surgical History Surgery Date(Month/Year) cholecystectomy bypass grafting eye surgery
--- NOTE | 2025-01-10 13:52 | HO.ANESPROP2 ---
Documented by User: Lynne Aceves NP 01/10/25 13:55 HPI - Anesthesia Eval Consult details Narrative: 64 yr old male for colonoscopy CAD: H/O bypass age 40; saw [facility] [place] for follow up, note states stable coronary artery disease, remote coronary bypass, chronic right bundle-branch block; no changed to medication regimen. PMF Active Problems Active Problems: All Active Problems Excessive daytime sleepiness (Acute) Loud snoring (Acute) Chronic fatigue (Acute) Osteoporosis (Acute) Screening for osteoporosis (Acute) Cough (Acute) Tubular adenoma of colon (Acute) Thoracic back pain (Acute) Allergies (Acute) Skin tag (Acute) Hand pain (Acute) Difficulty sleeping (Acute) Low back pain (Acute) Golfers elbow of left upper extremity (Acute) Golfers elbow of right upper extremity (Acute) Dupuytren's contracture of both hands (Acute) Left tennis elbow (Acute) Cervicalgia (Acute) Right bundle branch block (Acute) Hyperlipidemia (Acute) Lower extremity edema (Acute) Neoplasm of uncertain behavior of skin (Acute) Right foot pain (Acute) Daytime sleepiness (Acute) Low HDL (under 40) (Acute) Elevated alanine aminotransferase (ALT) level (Acute) Anxiety and depression (Acute) Memory changes (Acute) Type 2 diabetes mellitus with unspecified complications (Acute) Essential hypertension (Acute) Restless leg syndrome (Acute) Coronary artery disease (Acute) Fatigue (Acute) Erectile dysfunction (Acute) Past Medical History Medical History Enlarged prostate Diabetes Thyroid disease Cough Anxiety Adult general medical exam Mid back pain Back Pain Dupuytren's contracture of right hand Dupuytren's contracture of left hand Screening for prostate cancer Screening for colon cancer Conjunctivitis, left eye Viral upper respiratory illness Postnasal drip Postnasal drip Diabetes type 2, controlled Abnormal EKG Atherosclerotic cardiovascular disease Hyperlipidemia Essential hypertension Family History Family History Father Heart disease Mother Pacemaker Other Substance use disorder Surgical History Surgical History H/O colonoscopy History of coronary artery bypass graft (~2001) History of cholecystectomy Social History Social History Housing: House Alcohol intake: current Alcohol intake frequency: holidays/special occasions only Patient Tobacco Use Status: Former Tobacco user e-Cigarette/Vaping Use: Never Used Second Hand Smoke Exposure: No Use of substances other than those prescribed or required for medical reasons: No Are you DNR?: No Advance Directives: No Advance Directives Information Provided: Yes service: Yes Current occupational status: employed 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 Current occupational exposures/hazards: No Cognitive needs: No Hearing needs: Yes (Hearing Aide) Vision needs: Yes (Glasses) Meds Allergies Allergy/AdvReac Type Severity Reaction Status Date / Time No Known Allergies Allergy Verified 01/14/25 07:15 Home Medications ?Medication ?Instructions ?Recorded ?Confirmed ?Last Taken ?Type aspirin 81 mg tablet,delayed 81 mg PO DAILY 07/15/20 01/14/25 Unknown History release trazodone 100 mg tablet 100 mg PO BEDTIME PRN Insomnia 10/31/24 01/14/25 Unknown History hydrocortisone 2.5 % topical 1 appl topical BID 11/05/24 01/14/25 Unknown History ointment omeprazole 20 mg capsule,delayed 20 mg PO DAILY 11/05/24 01/14/25 Unknown History release sodium chloride 0.65 % nasal spray 1 spray intranasal BID PRN 11/05/24 01/14/25 Unknown History aerosol (Saline Mist) Congestion Exam Narrative Narrative: EKG 10/2024 NSR, rate 80 RBBB ECHO 2020 Conclusions: - The left ventricular systolic function is normal. The visually estimated ejection fraction is between 60-65%. - There is mild to moderately decreased right ventricular systolic function. - No obvious valvular pathology seen on this study. Exercise Stress Test 2022 Exercise stress test exercise 7 min 36 second of James protocol achieving 92% MPHR, with mild SOB, no chest discomfort. without arrhythmias, with resting normal BP of 138/80, stage 1 174/80, stage 2 188/98, peak BP 200/84, without EKG changes. Test reviewed with Dr. Pierce. Documented by User: Geovanna Tamayo MD 01/14/25 07:58 PMFSH Past Medical History Medical History Enlarged prostate Diabetes Thyroid disease Cough Anxiety Adult general medical exam Mid back pain Back Pain Dupuytren's contracture of right hand Dupuytren's contracture of left hand Screening for prostate cancer Screening for colon cancer Conjunctivitis, left eye Viral upper respiratory illness Postnasal drip Postnasal drip Diabetes type 2, controlled Abnormal EKG Atherosclerotic cardiovascular disease Hyperlipidemia Essential hypertension Family History Family History Father Heart disease Mother Pacemaker Other Substance use disorder Family history of problems with anesthesia: No Surgical History Surgical History H/O colonoscopy History of coronary artery bypass graft (~2001) History of cholecystectomy History of Problems with Anesthesia: No Social History Social History Housing: House Alcohol intake: current Alcohol intake frequency: holidays/special occasions only Patient Tobacco Use Status: Former Tobacco user e-Cigarette/Vaping Use: Never Used Second Hand Smoke Exposure: No Use of substances other than those prescribed or required for medical reasons: No Are you DNR?: No Advance Directives: No Advance Directives Information Provided: Yes service: Yes Current occupational status: employed 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 Current occupational exposures/hazards: No Cognitive needs: No Hearing needs: Yes (Hearing Aide) Vision needs: Yes (Glasses) Meds Allergies Allergy/AdvReac Type Severity Reaction Status Date / Time No Known Allergies Allergy Verified 01/14/25 07:15 Home Medications ?Medication ?Instructions ?Recorded ?Confirmed ?Last Taken ?Type aspirin 81 mg tablet,delayed 81 mg PO DAILY 07/15/20 01/14/25 Unknown History release trazodone 100 mg tablet 100 mg PO BEDTIME PRN Insomnia 10/31/24 01/14/25 Unknown History hydrocortisone 2.5 % topical 1 appl topical BID 11/05/24 01/14/25 Unknown History ointment omeprazole 20 mg capsule,delayed 20 mg PO DAILY 11/05/24 01/14/25 Unknown History release sodium chloride 0.65 % nasal spray 1 spray intranasal BID PRN 11/05/24 01/14/25 Unknown History aerosol (Saline Mist) Congestion Exam Airway Mallampati Class: III TM Dist: <=3cm Neck ROM: Full Heart: rrr Lungs: cta Assessment and Plan Assessment Anesthesia Assessment: Anesthesia Plan Discussed and Chart Reviewed Final Anesthetic Review Family History of Problems with Anesthesia: No History of Problems with Anesthesia: No NPO: Yes ASA Class: III Final Preanesthetic Review: No Changes in Pt Med Stat, Meds/Allgs Chart Reviewed, Consent Obtained/Reviewed and Anes Risks/Benef Reviewed Patient Risk: Intermediate Procedure Risk: Low Anesthetic Plan Anesthetic Plan: MAC: and Agree w/ Assess. and Plan Disposition: Standard PACU
[2025-01-14 07:18] VITALS: BMI 31.0
[2025-01-14 07:20] VITALS: BP 149/76; PULSE 58; RESP 15; TEMP 36.6; O2SAT 94
[2025-01-14] MEDS: Lactated Ringers 1,000 ML 100 ML IVCONT (07:38)
[2025-01-14 07:44] LABS: Glucose, Whole Blood 155 mg/dL (60-115)
--- NOTE | 2025-01-14 08:11 | MHC.SHP ---
Pre-Procedural Eval Section A - 24 Hr Update-Section A only Date of Service: 01/14/25 Section B - Complete if H&P > 30 days Chief Complaint: screening Relevant Family History (Specify if Yes): No Relevant Social History: None Present Medications: see Short Stay Collaborative assessment Medical History: Significant History (Allergic rhinitis Hypertension High cholesterol Right bundle branch block Diabetes Coronary artery disease Erectile dysfunction Memory problems Depression with anxiety Skin cancer Back neck hand and foot pain Insomnia ) History of Previous Operations: Relevant previous surgery/procedure and date(s) ( CABG Cholecystectomy Colonoscopy 2010= 2 TA is and hyperplastic polyps, 2018= 1 TA and hyperplastic polyps-Aydin) Allergies: Allergies Allergy/AdvReac Type Severity Reaction Status Date / Time No Known Allergies Allergy Verified 01/14/25 07:15 Review of Systems Sugical H&P ROS: Negative: Constitution, Cardiovascular, Respiratory, Neurological, Psychiatric, Hem-Onc, Allergic/Immunologic, Gastrointestinal, Genitourinary, Musculoskeletal, Integumentary, Endocrine and Eyes/Ears/Nose/Throat Exam Surgical H&P Exam: Normal: HEENT, Normal: Heart, Normal: Lungs, Normal: Extremities, Normal: Abdomen, Normal: Skin and Normal: Neurological Plan Diagnosis/Plan: Unchanged I have reviewed the history and physical and performed a pertinent physical examination on my patient. No changes have occurred unless specified. Time Spent With Patient Time: Total time managing care of this patient today ____ minutes.
--- NOTE | 2025-01-14 09:13 | P.OPN-COLO_ITS ---
Colonoscopy Operative Note Operative Note Date of Service: 01/14/25 Narrative: Operative Information Procedure Description: Colonoscopy Indication: Screening Anesthesia: MAC COLONOSCOPY Instrument: Olympus variable stiffness pediatric scope 190L Colonoscopy Monitoring: Vital signs and clinical assessment, continuous EKG monitoring, Pulse oximetry, Carbon Dioxide monitoring and blood pressure monitoring were done throughout the procedure. Colon withdrawal time was 45 minutes. Procedure: The patient was placed in the left lateral decubitis position and pre-procedure medications were administered. After a digital rectal examination of the ano-rectum, the video colonoscope was inserted into the rectum and advanced through the colon to the cecum/TI. The colonoscope was slowly withdrawn in a retrograde panoramic fashion and the colon mucosa was carefully examined including a retroflexed view of the rectum. Findings and interventions are described below. Procedure Difficulty: moderate due to looping Findings: Terminal Ileum-normal Cecum: 8-9 mm sessile polyp lifted with eleview and removed with cold snare Ascending Colon: x 2 sessile polyps 8-10 mm removed with cold snare, x 1 sessile polyp 5-6 mm removed with cold forceps Transverse Colon - close to hepatic flexure 12-14 mm sessile polyp lifted with epinephrine then removed piece meal with cold snare. Eleview was then injected to get a better idea on edges of the lesion and also for further lifting. APC was then used to ablate the edges and few areas withing the defect. X3 ultra clips used to close the defect Descending Colon:normal Sigmoid Colon: x 2 sessile polyps 8-9 mm removed with cold snare Rectum: Retroflexion with small internal hemorrhoids seen, grade I Anorectum - normal Intervention: cold snare, epinephrine injection, eleview injection, cold forceps, clips placement, APC Colon preparation: [place] Bowel Preparation Scale Right colon; 2 Transverse colon: 2 Left colon; 2 (0 = Unprepared colon segment with mucosa not seen due to solid stool that cannot be cleared. 1 = Portion of mucosa of the colon segment seen, but other areas of the colon segment not well seen due to staining, residual stool and/or opaque liquid. 2 = Minor amount of residual staining, small fragments of stool and/or opaque liquid, but mucosa of colon segment seen well. 3 = Entire mucosa of colon segment seen well with no residual staining, small fragments of stool or opaque liquid) Impression and Post Procedure Diagnosis: colon polyps x 6 internal hemorrhoids Plan: High fiber diet leaflet Avoid straining at stool, epsom salts and sitz bath, anusol supps or cream Repeat Colonoscopy in 3-6 months due to polyps or earlier if clinically indicated Above findings were reviewed with the patient and relevant handouts were provided if indicated.
[2025-01-14 09:16] VITALS: BP 115/58; PULSE 64; RESP 12; TEMP 36.4; O2SAT 93
[2025-01-14 09:30] VITALS: BP 111/68; PULSE 64; RESP 12; TEMP 36.4; O2SAT 96
== END 2025-01-14 10:09 | disposition home or self-care (01) ==
PROVIDERS: PCP Family Medicine; Visit Provider Internal Medicine Gastroenterology
PROC: 0DJD8ZZ Inspection of Lower Intestinal Tract, Via Natural or Artificial Opening Endoscopic (ICD-10-PCS; CPT 45378; principal; 2025-01-14 08:20)
DX: Z12.11 Encounter for screening for malignant neoplasm of colon (principal); E11.9 Type 2 diabetes mellitus without complications; Z86.0101 Personal history of adenomatous and serrated colon polyps; Z86.0102 Personal history of hyperplastic colon polyps; K64.0 First degree hemorrhoids; D12.2 Benign neoplasm of ascending colon; D12.0 Benign neoplasm of cecum; D12.5 Benign neoplasm of sigmoid colon; D12.3 Benign neoplasm of transverse colon
CPT/HCPCS: 45380; 45385; 45381; 82947; 88305; C1889; J0168; J2003; J2704

== ENCOUNTER → 2025-01-14 06:40 | Outpatient (BNV) | payer MEDICARE, MEDICAID, SELFPAY | PROVIDERS: PCP Family Medicine; Visit Provider Internal Medicine Gastroenterology | DX: Z12.11 Encounter for screening for malignant neoplasm of colon (principal); K63.5 Polyp of colon; K64.0 First degree hemorrhoids | CPT/HCPCS: 45385 ==